=== PATIENT | male | born 1930 | race Caucasian/White ===

== ENCOUNTER 2019-03-24 15:33 | Inpatient (IN) ==
[2019-03-24] MEDS ORDERED: 0.2 MICRON FILTER SET 1 EA IV ONE (15:45)
[2019-03-24] MEDS ORDERED: SODIUM CHLORIDE 0.9% 1000ML 1,000 ML IV ONE (15:46)
[2019-03-24] MEDS ORDERED: NOREPINEPHRINE BIT INJ 8 MG in DEXTROSE 5% 500 ML IV PRN (15:46)
[2019-03-24] MEDS ORDERED: AMIODARONE / D5W 360 MG/200 ML BAG IV SCH (15:55)
[2019-03-24] MEDS ORDERED: NOREPINEPHRINE (Adult STAT Only) 4 MG in D5W 250 ML IV STA (15:56)
--- NOTE | 2019-03-24 15:58 | XRay Report ---
XR chest 1V portable CLINICAL HISTORY: formerly [facility] COMPARISON STUDY: Chest radiograph July 26, 2018. FINDINGS: Lung volumes are diminished. Mild bibasilar opacities favor atelectasis. There is no pneumo thorax or pleural effusion. Pulmonary vascularity is normal. Cardiac size is within normal limits. IMPRESSION: Low lung volumes with bibasilar opacities suggestive of atelectasis. No acute findings. Electronically signed by: Capo Álvarez M.D. 03/24/2019 3:56 PM
[2019-03-24 16:00] LABS: Basophils # (auto) 0.02 K/uL (0-0.2); Basophils % (auto) 0.2 %; Eosinophils # (auto) 0.02 K/uL (0-0.5); Eosinophils % (auto) 0.2 %; Hematocrit (blood only) 39.1 % (42-52); Hemoglobin 12.7 g/dL (14.0-18.0); Immature Granulocytes # (auto) 0.05 K/uL (0.00-0.02); Immature Granulocytes % (auto) 0.5 %; Lymphocytes # (auto) 1.56 K/uL (1.2-3.4); Lymphocytes % (auto) 14.4 %; Mean Corpuscular Hemoglobin 31.6 pg (25-34); Mean Corpuscular Hgb Conc 32.5 g/dL (32-36); Mean Corpuscular Volume 97.3 fL (80-100); Mean Platelet Volume 12.4 fL (7.4-10.4); Monocytes # (auto) 0.29 K/uL (0.11-0.59); Monocytes % (auto) 2.7 %; Neutrophils # (auto) 8.86 K/uL (1.4-6.5); Platelet Count 151 K/uL (130-400); RDW Coefficient of Variation 13.7 % (11.5-14.5); RDW Standard Deviation 48.7 fL (36.4-46.3); Red Blood Count 4.02 M/uL (4.7-6.1)
[2019-03-24 16:32] LABS: Albumin Globulin Ratio 1.1 (0.9-2); Albumin Level 3.3 gm/dl (3.4-5.0); BUN Creatinine Ratio 21.2 (10-20); Bilirubin,Total 0.5 mg/dl (0.2-1); Calcium 8.9 mg/dl (8.5-10.1); Creatinine Clr Calc Pharmacy 32.9 ml/min; Est GFR (African American) 38.4; Est GFR (Non-African American) 33.1; Globulin 2.9 gm/dl (2.5-4.0); Magnesium 2.4 mg/dl (1.8-2.4); Potassium 3.9 mmol/L (3.5-5.1); Total Protein 6.2 gm/dl (6.4-8.2); Troponin I 0.485 ng/ml (0-0.045)
--- NOTE | 2019-03-24 16:39 | XRay Report ---
XR chest 1V portable CLINICAL HISTORY: cp dyspnea COMPARISON STUDY: 03/24/2019 FINDINGS: Central catheter in superior vena cava. Lungs are clear. Mild stable cardiomegaly. Diaphrag ms are smooth. Several old healed left-sided rib fractures. IMPRESSION: Mild cardiomegaly. No acute process. The above report was generated using voice recognition software. It may contain grammatical, syntax or spelling errors. Electronically signed by: Ranjan Otero M.D. 03/24/2019 4:37 PM
[2019-03-24] MEDS ORDERED: INSULIN PROTOCOL GOAL RANGE ONE (16:40)
[2019-03-24] MEDS ORDERED: MODERATE STRESS LEVEL ONE (16:40)
[2019-03-24] MEDS ORDERED: INSULIN REGULAR 250 UNITS in SODIUM CHLORIDE 0.9% 247.5 ML IV SCH ×2 (16:45→19:00)
[2019-03-24 16:46] LABS: Beta-Hydroxybutyrate 5.74 mg/dl (0.2-2.81)
[2019-03-24] MEDS ORDERED: NovoLIN-R BOLUS FROM BAG IV ONE (17:00)
[2019-03-24] MEDS ORDERED: HEPARIN SODIUM/DEXTROSE 25,000 UNITS/500 ML BAG IV SCH (17:15)
[2019-03-24] MEDS ORDERED: NiCARDipine HCL INJ 2.5 MG/ML 10 ML AMP ONE (17:21)
[2019-03-24] MEDS ORDERED: HEPARIN (PORCINE) 1000 UNIT/ML 10 ML (CATH LAB USE ONLY) ONE ×2 (17:21→18:20)
[2019-03-24] MEDS ORDERED: MIDAZOLAM HCL 1 MG/ML 2ML VIAL ONE (17:22)
[2019-03-24] MEDS ORDERED: fentaNYL citrate 100 MCG/2 ML VIAL ONE (17:22)
[2019-03-24] MEDS ORDERED: NITROGLYCERIN/D5W 100MCG/ML 20ML SYR ONE (17:23)
--- NOTE | 2019-03-24 17:23 | Pre Anesthesia Assessment ---
Date of Service March 24, 2019 Pre Sedation Assessment Vital Signs Temp Pulse Pulse Resp BP BP Pulse Ox 03/24/19 17:15 74 16 111/52 L 99 03/24/19 17:09 75 16 110/77 100 03/24/19 17:03 77 16 101/44 L 98 03/24/19 16:51 77 18 93/47 L 100 03/24/19 16:45 70 16 106/50 L 100 03/24/19 16:40 77 16 95/55 L 99 03/24/19 16:35 77 16 94/49 L 99 03/24/19 16:29 72 15 91/47 L 95 03/24/19 16:21 73 16 101/59 L 99 03/24/19 16:12 77 18 84/38 L 100 03/24/19 15:57 78 16 82/50 L 96 03/24/19 15:52 96 03/24/19 15:51 85 16 76/40 L 94 03/24/19 15:40 97.9 F 90 16 69/38 L 94 Cardiovascular RRR, no murmur, no edema Respiratory normal respiratory effort, lungs clear to auscultation Pre-Sedation Airway Assessment Smoking Status: Unknown if ever smoked Hx Sleep Apnea: No Hx Difficult Intubation: No Thyromental Distance: > or= 3.5 Finger Breadths Mallampati Class: III Procedure Planning Contraindications for Sedation: none Current Medications Reviewed: Yes Notes The planned sedation has been discussed with the patient. Informed Consent was obtained. I have identified the patient, determined the appropriateness of sedation and have assessed the patient immediately prior to the procedure. All medicine(s) and interventions are by my order.
--- NOTE | 2019-03-24 17:24 | Critical Care Consultation ---
Date of Consultation March 24, 2019 Assessment & Plan (1) Admitted to intensive care unit: Assessment and Plan: -Ventricular tachycardia likely secondary to coronary ischemia versus possible urinary tract infection -Shock, possibly mixed cardiogenic, hypovolemic and component of septic shock as well -Complicated UTI -Mild DKA Neurologic: Avoid mind altering agents Seen and altered mental status was likely due to his VT Pulmonary: Minimal oxygen requirements currently. Chest x-ray with no acute findings. Cardiovascular: Trend troponins. Likely has a troponin leak from possible underlying ischemia. Defer heparin drip to cardiology. He is to go to Floor Manager now. Discussed with Dr. Castro. Currently on amiodarone. Will need to be started on a beta-geovanni once he is out of shock. We will give a liter to fluids for resuscitation. EF looked intact on limited bedside echo. Needs a formal echo. Gastrointestinal: N.p.o. for now. Renal: He does have an SOUTH at present and is at risk for more injury to his kidneys from the contrast load. We will hydrate as noted above. Infectious disease: Start him on ceftriaxone for possible UTI. Hematologic: No issues currently Endocrine: DKA as noted above. Underlying cause may be due to coronary ischemia versus infectious etiology or combination of both. F/E/N: Lines and tubes: Left IJ placed VTE prophylaxis: Defer until definitive management by cardiology determined Family at bedside: Family updated bedside Disposition: Admit to the ICU I have personally spent 65 minutes of critical care time in the direct management of this patient. This is a life/limb threatening event. This includes time spent evaluating patient, direct bedside care, chart review, placing orders, interpretation of diagnostic studies, discussion with consultants, patient, and family members, as well as other required patient management a ctivities. This time is exclusive of all separately billable procedures, and teaching time and separate from and in addition to any other critical care service time. Thank you for allowing us to participate in the care of this patient. (2) Ventricular tachycardia: (3) Elevated troponin: (4) Shock circulatory: (5) DKA (diabetic ketoacidoses): (6) SOUTH (acute kidney injury): (7) Transaminitis: (8) Complicated UTI (urinary tract infection): History of Present Illness Reason for Consultation: Ventricular tachycardia status post shock and hypotension requiring Levophed Requesting Physician: Emergency room physician History of Present Illness The history was reviewed from electronic medical record and by interviewing the patient. Patient's and daughter was at bedside. 88-year-old male with past medical history of hypertension, diabetes mellitus and pancreatic lesion who presented to the emergency department due to falling to the ground in his bathroom this afternoon. Patient's states that the patient was feeling nauseous and unwell in the morning around 1030. He had some chest pain and discomfort then. He was walking around during that time. This improved a little bit and then in the afternoon around 1:00 he walked to the bathroom and fell. It sounds like he lost consciousness during this episode. The found him and noted that he was not making much sense when speaking. They called EMS and brought him to the emergency department. On route to the emergency department, he was found to be in ventricular tachycardia and was shocked. In the emergency department he was hypotensive and a left IJ was placed. He is currently on 0.05 of norepinephrine. EKG shows dynamic changes in the left lateral leads with deep ST depressions. I performed a limited bedside echo which demonstrated a relatively preserved ejection fraction. Dr. Castro, cardiac interventionalists, also looked at his heart using echo and found similar findings. The plan is to go ahead and proceed with a left heart catheterization. Patient denies any complaint currently. He did state that he had some URI type symptoms last week. He denies any nausea currently, vomiting, chest pain, night sweats or weight loss. Allergies Allergy/AdvReac Type Severity Reaction Status Date / Time No Known Allergies Allergy Verified 03/09/19 14:12 Home Medications Home Medications Medication Instructions Recorded Confirmed Type aspirin [Aspir-Low] 81 mg PO DAILY 07/26/18 03/24/19 History cholecalciferol (vitamin D3) 2,000 unit PO QPM 07/26/18 03/24/19 History [Vitamin D3] glipizide 5 mg PO BID 07/26/18 03/24/19 History lisinopril-hydrochlorothiazide 1 tab PO QAM 07/26/18 03/24/19 History multivitamin 1 tab PO QAM 07/26/18 03/24/19 History naproxen 500 mg PO BID PRN 07/26/18 03/24/19 History albuterol sulfate 2 inh INHALATION QID PRN 03/09/19 03/24/19 History methocarbamol 500 mg PO HS 03/24/19 03/24/19 History ondansetron HCl 4 mg PO Q6 PRN 03/24/19 03/24/19 History Patient History Medical History HTN (hypertension) (Chronic) DMII (diabetes mellitus, type 2) (Chronic) Pancreatic mass (Chronic) BEING MONITORED Hearing deficit Impaired lung function "80% LUNG FUNCTION">REASON FOR INHALER PER PATIENT Osteoarthritis Surgical History H/O metal removed from eye History of cholecystectomy History of colonoscopy History of tonsillectomy and adenoidectomy History of tooth extraction Family History Grandfather (Maternal) Family history of diabetes mellitus Social History Preferred Language: Indonesian Communication Ability: Effective Gate Technician Required: No Beliefs That Will Affect Care: None marital status: Current Living Situation: Spouse current occupational status: retired Feels Safe at Home: Yes Smoking Status: Unknown if ever smoked Hx Alcohol Use: Yes Alcohol type: hard liquor Hx Substance Use: No Review of Systems Review of Systems: All systems reviewed & are unremarkable except as noted in HPI & below Physical Exam Constitutional: WD/WN, vitals as above + frail appearing Eyes: PERRL, conjunctivae normal, anicteric sclerae normal visual garsia by confrontation ENMT: external ear and nose normal, oropharynx normal Ears: + hearing impairment Neck: trachea midline, no thyromegaly normal visual inspection Respiratory: normal respiratory effort, lungs clear to auscultation normal respiratory effort; no respiratory distress Cardiovascular: RRR, no murmur, no edema Heart Sounds: no murmur Extremities: no edema Gastrointestinal (Abdomen): normal bowel sounds, soft, nontender, no hepatosplenomegaly Inspection/Auscultation: abdomen normal to inspection; abdomen not distended Musculoskeletal: no cyanosis or clubbing, extremities motor strength 5/5 Head/Neck/Chest: normocephalic Skin: no rashes, warm and dry normal turgor Neurologic: PERRL, EOMI, accommodation nl, no face palsy, no dysarthria Psychiatric: A+Ox3, euthymic affect Eye Contact: good eye contact Lymphatic: no cervical or axillary lymphadenopathy Results & Data Vital Signs (Past 12 Hours) Vital Signs Temp Pulse Pulse Resp BP BP Pulse Ox 03/24/19 17:15 74 16 111/52 L 99 03/24/19 17:09 75 16 110/77 100 03/24/19 17:03 77 16 101/44 L 98 03/24/19 16:51 77 18 93/47 L 100 03/24/19 16:45 70 16 106/50 L 100 03/24/19 16:40 77 16 95/55 L 99 03/24/19 16:35 77 16 94/49 L 99 03/24/19 16:29 72 15 91/47 L 95 03/24/19 16:21 73 16 101/59 L 99 03/24/19 16:12 77 18 84/38 L 100 03/24/19 15:57 78 16 82/50 L 96 03/24/19 15:52 96 03/24/19 15:51 85 16 76/40 L 94 03/24/19 15:40 97.9 F 90 16 69/38 L 94 Chest x-ray and EKG reviewed. EKG reviewed and demonstrates dynamic ST segment changes. Chest x-ray with a left IJ in place and no evidence of an infiltrate. PG Care Time/CCT Total # of Minutes Spent Total Time Spent: 65 Total Time Spent with Patient: Total time spent is greater than 50% in coordination of care (as documented) at patient's floor/unit and/or counseling patient: 65 min Critical Care Time: Yes Total Critical Care Time: 65
[2019-03-24] MEDS ORDERED: PHARMACY GLYCEMIC MGMT CONSULT PRN (17:34)
[2019-03-24] MEDS ORDERED: DKA GOAL RANGE 150-250 mg/dl ONE (17:34)
--- NOTE | 2019-03-24 18:02 | History & Physical Report ---
Date of Service March 24, 2019 Assessment & Plan (1) Ventricular tachycardia: -admit to ICU -patient presenting from home with episodes of chest pressure, diaphoresis, nausea, and shortness of breath; en route to the ED, patient went into v-tach and was shocked -placed on amio in the ED; also started on norepi for BP support -EKG shows ST depressions in leads V2/V3 -going to lab instructor now -further recommendations/management post cath -resting echo (2) Hypotension: -? due to cardiogenic shock -was placed on norepi in ED -re-evaluate after cath -r/o sepsis (3) DKA (diabetic ketoacidoses): (4) DMII (diabetes mellitus, type 2): -labs suggest DKA with low HCO3, elevated gap, glucose 322 -insulin drip; management as per ICU (5) SOUTH (acute kidney injury): -IVF, follow renal functions -hold ACEi/HCTZ (6) DVT prophylaxis: -TEDs/SCDs for now History of Present Illness Chief Complaint: Weak, Nauseous, Chest Pressure, Shortness of Breath Primary Care Provider: Dalton Keller MD 88 year old male who presents to the ED via EMS. Starting this morning, patient was having episodes of diaphoresis, nausea, chest pressure, and shortness of breath. He collapsed in the bathroom earlier this afternoon. Patient denies loosing consciousness. reports patient was not making much sense. EMS was called. En route to the ED, patient went into V-tach and was shocked. Patient reports he otherwise has been feeling well recently. No other recent illnesses, fever, and chills. Denies other episodes of chest pain and shortness of breath. No abdominal pain, vomiting, or diarrhea. Denies urinary symptoms. Upon arrival to the ED, patient is awake and alert. He was placed on an amio drip. He was somewhat hypotensive and was also placed on a norepi drip. EKG shows ST depression in leads V2/V3. Labs show SOUTH and mild DKA. Dr. Castro evaluated the patient in the ED and patient will be going directly to the lab instructor for further management. Allergies Allergy/AdvReac Type Severity Reaction Status Date / Time No Known Allergies Allergy Verified 03/09/19 14:12 Home Medications Home Medications Medication Instructions Recorded Confirmed Type aspirin [Aspir-Low] 81 mg PO DAILY 07/26/18 03/24/19 History cholecalciferol (vitamin D3) 2,000 unit PO QPM 07/26/18 03/24/19 History [Vitamin D3] glipizide 5 mg PO BID 07/26/18 03/24/19 History lisinopril-hydrochlorothiazide 1 tab PO QAM 07/26/18 03/24/19 History multivitamin 1 tab PO QAM 07/26/18 03/24/19 History naproxen 500 mg PO BID PRN 07/26/18 03/24/19 History albuterol sulfate 2 inh INHALATION QID PRN 03/09/19 03/24/19 History methocarbamol 500 mg PO HS PRN 03/24/19 03/24/19 History ondansetron HCl 4 mg PO Q6 PRN 03/24/19 03/24/19 History Past Med/Surg History Medical History Osteoarthritis (Chronic) Hearing deficit (Chronic) HTN (hypertension) (Chronic) DMII (diabetes mellitus, type 2) (Chronic) Pancreatic mass (Chronic) BEING MONITORED Surgical History History of cholecystectomy (Chronic) Family History Grandfather (Maternal) Family history of diabetes mellitus Social History Preferred Language: Georgian Communication Ability: Effective Veterinary Anatomist Required: No Beliefs That Will Affect Care: None marital status: Current Living Situation: Spouse current occupational status: retired Feels Safe at Home: Yes Smoking Status: Former smoker Tobacco Type: cigarettes ; Second Hand Exposure: Yes ("A LITTLE BIT OF EXPOSURE NOW") ; Hx Alcohol Use: Yes Alcohol type: hard liquor Hx Substance Use: No Review of Systems Review of Systems: ROS per HPI, all other systems reviewed and negative Physical Exam Physical Exam: Please refer to Dr. Russell's addendum for physical exam Results & Data Vital Signs (Past 12 Hours) Vital Signs Temp Pulse Pulse Resp BP BP Pulse Ox 03/24/19 17:15 74 16 111/52 L 99 03/24/19 17:09 75 16 110/77 100 03/24/19 17:03 77 16 101/44 L 98 03/24/19 16:51 77 18 93/47 L 100 03/24/19 16:45 70 16 106/50 L 100 03/24/19 16:40 77 16 95/55 L 99 03/24/19 16:35 77 16 94/49 L 99 03/24/19 16:29 72 15 91/47 L 95 03/24/19 16:21 73 16 101/59 L 99 03/24/19 16:12 77 18 84/38 L 100 03/24/19 15:57 78 16 82/50 L 96 03/24/19 15:52 96 03/24/19 15:51 85 16 76/40 L 94 03/24/19 15:40 36.6 C 90 16 69/38 L 94 Laboratory Results Short CBC 03/24/19 Range/Units 15:50 WBC 10.80 (4.8-10.8) K/uL Hgb 12.7 L (14.0-18.0) g/dL Hct 39.1 L (42-52) % Plt Count 151 (130-400) K/uL BMP 03/24/19 15:50 Sodium 142 Potassium 3.9 Chloride 107 Carbon Dioxide 16 L BUN 38 H Creatinine 1.81 H Glucose 322 H* Calcium 8.9 Cardiac Enzymes 03/24/19 Range/Units 15:50 Troponin I 0.485 H* (0-0.045) ng/ml Liver Function 03/24/19 Range/Units 15:50 Total Bilirubin 0.5 (0.2-1) mg/dl AST 54 H (15-37) U/L ALT 40 (12-78) U/L Alkaline Phosphatase 54 (45-117) U/L Albumin 3.3 L (3.4-5.0) gm/dl Diagnostic Findings CXR IMPRESSION: Low lung volumes with bibasilar opacities suggestive of atelectasis. No acute findings Code Status & VTE Plan Code Status Patient is a full code as per my discussion with him. VTE Prophylaxis Plan VTE Prophylaxis will be ordered: Yes Supervising Physician Co-Signing Physician Notes Patient is an 88-year-old male with history of diabetes, hypertension, former tobacco use and other problems presents with history of nausea, dizziness, diaphoresis, retrosternal chest pressure, dyspnea on exertion which started at around 10:30 a.m. this morning. Patient symptoms transiently improved with inhaler use. Patient later collapsed in the bathroom creatinine. No loss of consciousness as per patient, family. En route to the hospital patient was noted to have ventricular tachycardia and was shocked. While in ED patient has minimal chest pressure but denies any shortness of breath, dizziness, nausea. Patient was evaluated by cardiology and was suggested to have an emergent cardiac cath to rule out CAD. Labs suggestive of acute kidney injury, mild DKA, QTC prolonged at 497. Mild troponin elevation likely secondary to NSTEMI, cardiac shock. EKG suggestive of accelerated rhythm, PVCs and nonspecific ST-T wave changes. Currently CT head, neck is pending. On exam patient is moderately built and nourished, no apparent distress, normocephalic atraumatic,+ hearing aid, lungs-normal breath sounds, bilateral wheezing, S1-S2, no murmur, abdomen soft nontender, bowel sounds are present, grossly no focal neurological deficits, no pedal edema. Patient is admitted for management of NSTEMI, ventricular tachycardia, mild DKA, SOUTH. Patient is being planned to undergo cardiac catheterization and monitored in ICU post-cath for further management. We will plan to correct DKA with insulin therapy, IV fluids. Monitor renal function closely given contrast during catheterization as well. Further management based on cath results. Cardiology, critical care will be consulted. I personally reviewed the record. Patient is interviewed and examined at bedside. Patient's care is coordinated with Adrienne Resendiz FISH SEINER. Please refer to the documentation above for details of patient's presentation and for discussion of other issues.
[2019-03-24] MEDS ORDERED: CLOPIDOGREL BISULFATE 300 MG TAB ONE (18:28)
--- NOTE | 2019-03-24 18:39 | Pre Anesthesia Assessment ---
Date of Service March 24, 2019 Pre Sedation Assessment Vital Signs Temp Pulse Pulse Resp BP BP Pulse Ox 03/24/19 17:15 74 16 111/52 L 99 03/24/19 17:09 75 16 110/77 100 03/24/19 17:03 77 16 101/44 L 98 03/24/19 16:51 77 18 93/47 L 100 03/24/19 16:45 70 16 106/50 L 100 03/24/19 16:40 77 16 95/55 L 99 03/24/19 16:35 77 16 94/49 L 99 03/24/19 16:29 72 15 91/47 L 95 03/24/19 16:21 73 16 101/59 L 99 03/24/19 16:12 77 18 84/38 L 100 03/24/19 15:57 78 16 82/50 L 96 03/24/19 15:52 96 03/24/19 15:51 85 16 76/40 L 94 03/24/19 15:40 97.9 F 90 16 69/38 L 94 Cardiovascular RRR, no murmur, no edema Respiratory normal respiratory effort, lungs clear to auscultation Pre-Sedation Airway Assessment Smoking Status: Former smoker Hx Sleep Apnea: No Hx Difficult Intubation: No Short, Thick Neck: No Thyromental Distance: > or= 3.5 Finger Breadths Mallampati Class: III Procedure Planning Contraindications for Sedation: none Current Medications Reviewed: Yes Notes The planned sedation has been discussed with the patient. Informed Consent was obtained. I have identified the patient, determined the appropriateness of sedation and have assessed the patient immediately prior to the procedure. All medicine(s) and interventions are by my order.
--- NOTE | 2019-03-24 18:40 | Post Anesthesia Assessment ---
Date of Service March 24, 2019 Post Sedation Assessment Vital Signs Temp Pulse Pulse Resp BP BP Pulse Ox 03/24/19 17:15 74 16 111/52 L 99 03/24/19 17:09 75 16 110/77 100 03/24/19 17:03 77 16 101/44 L 98 03/24/19 16:51 77 18 93/47 L 100 03/24/19 16:45 70 16 106/50 L 100 03/24/19 16:40 77 16 95/55 L 99 03/24/19 16:35 77 16 94/49 L 99 03/24/19 16:29 72 15 91/47 L 95 03/24/19 16:21 73 16 101/59 L 99 03/24/19 16:12 77 18 84/38 L 100 03/24/19 15:57 78 16 82/50 L 96 03/24/19 15:52 96 03/24/19 15:51 85 16 76/40 L 94 03/24/19 15:40 97.9 F 90 16 69/38 L 94 Recovery Score Activity: Moves 4 extremities Respiration: Deep Breath/Cough Circulation: +/-20% PreAnes Value Consciousness: Fully Awake Oxygen Saturation: O2 needed for >90% Discharge Sedation Level of Care: Fast Track Phase II Post Sedation Plan On clinical assessment, the patient appears to have tolerated the sedation wit hout complications. Patient is recovering as anticipated. Patient will continue to be monitored by nursing and may be discharged when sedation discharge criteria are met per below protocol. Upon Completions of procedure and additional 15 minutes continue every 5 minute vital signs and the P.A.R. score; then discharge to a Phase I or Fast Track to Phase II per the following guidelines: * Discharge Patient to appropriate Phase II area if PAR is 8 or greater or return to pre- procedure baseline. The post - procedure orders will be as directed. * If PAR score is less than 8 or not return to pre-procedure baseline then patient will follow Phase I monitoring till PAR is reached for Phase II. The Phase I may be done in procedure room or may call to secure a Phase I area. * If naloxone or flumazenil are used for reversal, hold in Phase I for continued monitoring from when last reversal dose was given for a minimum of 60 minutes or longer pending the nurse and/or physician discretion of patient condition before discharge to Phase II. Please call the Sedation Physician to re-evaluate and complete post-note for discharge to Phase II area. Do NOT discharge from procedure sedation or Phase 1 until post- sedation evaluation note is complete by procedure /sedation MD Sedation Discharge Instructions to be given to the patient at discharge to home.
--- NOTE | 2019-03-24 18:40 | Emergency Department Note ---
Entered by Luis Felipe Jackson acting as a scribe for Tomi Lara DO History of Present Illness General Chief complaint: Cardiac Assessment Stated complaint: SYNCOPE, SEMI RESPONSIVE, HYPOTENSION Source: EMS History of Present Illness Provider complaint: Syncope Onset (ago): hour(s) (Just prior to arrival) Location: head Pain Consistency: + other (Episodic) Relieved By: + none Exacerbated By: + none Associated symptoms: no chest pain and no shortness of breath The patient is an 88 year old male w/ PMHx of DVT prophylaxis, SOUTH, DMII, HTN, and pancreatic mass who presents to the ED after having a syncopal episode just prior to arrival. Per EMS the patient syncopized in the bathroom and was found by family who then called 911. Upon arrival of EMS, the patient was mumbling and semi-responsive. En route the patient went into V-tach at 240 so he was given 6 of Adenosine however it did not work. She was then given 2.5 of Versed and shocked at 100J. The patient also received 150 of Amio as he was arriving in the ED. The patient is somewhat responsive and denies any headache or neck pain. Per EMS, the patient's family did not believe he hit his head. The patient denies any chest pain or shortness of breath currently or before the episode. HPI is limited secondary to patient's cognitive state. Per the patient's , the patient started not feeling well about 3 hours befo re the incident. She states he was diaphoretic and dizzy at this time. Per the , the syncopal episode occurred when he was walking to the bathroom. Home Medications Home Medications Medication Instructions Recorded Confirmed Type aspirin [Aspir-Low] 81 mg PO DAILY 07/26/18 03/24/19 History cholecalciferol (vitamin D3) 2,000 unit PO QPM 07/26/18 03/24/19 History [Vitamin D3] glipizide 5 mg PO BID 07/26/18 03/24/19 History lisinopril-hydrochlorothiazide 1 tab PO QAM 07/26/18 03/24/19 History multivitamin 1 tab PO QAM 07/26/18 03/24/19 History naproxen 500 mg PO BID PRN 07/26/18 03/24/19 History albuterol sulfate 2 inh INHALATION QID PRN 03/09/19 03/24/19 History methocarbamol 500 mg PO HS PRN 03/24/19 03/24/19 History ondansetron HCl 4 mg PO Q6 PRN 03/24/19 03/24/19 History Allergies Allergy/AdvReac Type Severity Reaction Status Date / Time No Known Allergies Allergy Verified 03/09/19 14:12 Past Med/Surg History Medical History Osteoarthritis (Chronic) Hearing deficit (Chronic) HTN (hypertension) (Chronic) DMII (diabetes mellitus, type 2) (Chronic) Pancreatic mass (Chronic) BEING MONITORED Surgical History History of cholecystectomy (Chronic) Family History Grandfather (Maternal) Family history of diabetes mellitus Social History Preferred Language: Tunisian Communication Ability: Effective Operating System Programmer Required: No Beliefs That Will Affect Care: None marital status: Current Living Situation: Spouse current occupational status: retired Feels Safe at Home: Yes Smoking Status: Former smoker Tobacco Type: cigarettes ; Second Hand Exposure: Yes ("A LITTLE BIT OF EXPOSURE NOW") ; Hx Alcohol Use: Yes Alcohol type: hard liquor Hx Substance Use: No Review of Systems See HPI for pertinent positives & negatives. Other (Limited secondary to patient's cognitive state) Physical Exam Vital Signs Vital Signs - 24 hr 03/24/19 15:40 03/24/19 15:51 03/24/19 15:52 Temperature 36.6 C Temperature Source Oral Sepsis Recent Fever Within 48 Hours No Sepsis New/Unexplained Change in Mental Status No Sepsis Action Taken by Nursing No Action Required Pulse Rate 90 Pulse Rate [Finger] 85 Respiratory Rate 16 16 Respiratory Effort / Characteristics Non-Labored Respiratory Depth Normal Respiratory Pattern Blood Pressure 69/38 L Blood Pressure [Left Arm] 76/40 L Blood Pressure Mean 48 Blood Pressure Mean [Left Arm] 52 Pulse Oximetry 94 94 96 Oxygen Delivery Method Room Air Nasal Cannula Oxygen Flow Rate 2 03/24/19 15:57 03/24/19 16:12 03/24/19 16:21 Temperature Temperature Source Sepsis Recent Fever Within 48 Hours Sepsis New/Unexplained Change in Mental Status Sepsis Action Taken by Nursing Pulse Rate Pulse Rate [Finger] 78 77 73 Respiratory Rate 16 18 16 Respiratory Effort / Characteristics Non-Labored Non-Labored Non-Labored Respiratory Depth Normal Normal Normal Respiratory Pattern Blood Pressure Blood Pressure [Left Arm] 82/50 L 84/38 L 101/59 L Blood Pressure Mean Blood Pressure Mean [Left Arm] 60 53 73 Pulse Oximetry 96 100 99 Oxygen Delivery Method Nasal Cannula Nasal Cannula Nasal Cannula Oxygen Flow Rate 2 2 2 03/24/19 16:29 03/24/19 16:35 03/24/19 16:40 Temperature Temperature Source Sepsis Recent Fever Within 48 Hours Sepsis New/Unexplained Change in Mental Status Sepsis Action Taken by Nursing Pulse Rate Pulse Rate [Finger] 72 77 77 Respiratory Rate 15 16 16 Respiratory Effort / Characteristics Non-Labored Non-Labored Non-Labored Respiratory Depth Normal Normal Normal Respiratory Pattern Blood Pressure Blood Pressure [Left Arm] 91/47 L 94/49 L 95/55 L Blood Pressure Mean Blood Pressure Mean [Left Arm] 61 64 68 Pulse Oximetry 95 99 99 Oxygen Delivery Method Nasal Cannula Nasal Cannula Oxygen Flow Rate 2 2 03/24/19 16:45 03/24/19 16:51 03/24/19 17:03 Temperature Temperature Source Sepsis Recent Fever Within 48 Hours Sepsis New/Unexplained Change in Mental Status Sepsis Action Taken by Nursing Pulse Rate Pulse Rate [Finger] 70 77 77 Respiratory Rate 16 18 16 Respiratory Effort / Characteristics Non-Labored Non-Labored Non-Labored Respiratory Depth Normal Normal Normal Respiratory Pattern Regular Regular Blood Pressure Blood Pressure [Left Arm] 106/50 L 93/47 L 101/44 L Blood Pressure Mean Blood Pressure Mean [Left Arm] 68 62 63 Pulse Oximetry 100 100 98 Oxygen Delivery Method Nasal Cannula Nasal Cannula Nasal Cannula Oxygen Flow Rate 2 2 2 03/24/19 17:09 03/24/19 17:15 Temperature Temperature Source Sepsis Recent Fever Within 48 Hours Sepsis New/Unexplained Change in Mental Status Sepsis Action Taken by Nursing Pulse Rate Pulse Rate [Finger] 75 74 Respiratory Rate 16 16 Respiratory Effort / Characteristics Non-Labored Non-Labored Respiratory Depth Normal Normal Respiratory Pattern Blood Pressure Blood Pressure [Left Arm] 110/77 111/52 L Blood Pressure Mean Blood Pressure Mean [Left Arm] 88 71 Pulse Oximetry 100 99 Oxygen Delivery Method Nasal Cannula Nasal Cannula Oxygen Flow Rate 2 2 GENERAL: Ill-appearing lying in bed on NC, awakens to painful stimuli, follows command but falls asleep quickly. EYE EXAM: normal conjunctiva. PERRL and EOM's grossly intact. Pupils are equal at 2mm. OROPHARYNX: no exudate, no erythema, lips, buccal mucosa, and tongue normal and mucous membranes are moist NECK: supple, no nuchal rigidity, no adenopathy, non-tender LUNGS: Clear to auscultation. Normal chest wall mechanics HEART: no murmurs, S1 normal and S2 normal ABDOMEN: abdomen soft, non-tender, normo-active bowel, sounds, no masses, no rebound or guarding. BACK: Back is symmetrical on inspection and there is no deformity, no midline tenderness, no CVA tenderness. SKIN: no rashes and no bruising UPPER EXTREMITIES: upper extremities are grossly normal. LOWER EXTREMITIES: No pitting edema. NEURO EXAM: Groggy but oriented, follow commands, no focal deficits. GENERAL: Laying on stretcher, ill-appearing on 2 L nasal cannula EYE EXAM: normal conjunctiva. Pupils 2 mm and equal round and reactive. OROPHARYNX: no exudate, no erythema, lips, buccal mucosa, and tongue normal and mucous membranes are dry. NECK: supple, no nuchal rigidity, no adenopathy, non-tender LUNGS: Diminished at bilateral bases. Normal chest wall mechanics HEART: no murmurs, S1 normal and S2 normal ABDOMEN: abdomen soft, non-tender, normo-active bowel sounds, no masses, no rebound or guarding. SKIN: no rashes and no bruising UPPER EXTREMITIES: upper extremities are grossly normal. LOWER EXTREMITIES: No pitting edema. NEURO EXAM: Awake alert oriented to person and place following commands no focal deficit but groggy. Procedures Free Text Procedures Ultrasound the left IJ was used to visualize placement of the left IJ. Central Line Placement Left IJ: Time Out Performed: Yes Patient Placed on Monitor/Pulse Ox: Yes MD Prep: mask, gown and gloves Central Line Prep: Chlorhexidine scrub and sterile drapes applied Local Anesthetic: lidocaine 1% Amount of anesthesia used (mL): 4 Ultrasound Used for Placement: Yes Central Line Lumen Inserted: single Post Procedure: sutured in place, good blood return, all ports aspirated, flushed, capped and sterile dressing applied Post Procedure X-Ray: tip of catheter in good position and no pneumothorax seen Patient Tolerated Procedure: well Complications: none Course ED COURSE: Vital signs were reviewed and showed hypotension. The patients medical record was reviewed The above diagnostic studies were performed and reviewed. ED treatments and interventions as stated above. Prior to arrival EMS sent two EKGs, the first read: V-tach rate of 240, normal axis The second read: ST rate of 103, ST depressions inferiorly and anteriorly, septal Q waves. 1533: The patient was evaluated in room B01. A complete history and physical examination was performed. 1544: The patient's blood pressure was dropping so I placed a central line. See procedure note for more information. 1640: I spoke to Dr. Mira Carrasquillo [facility] Tin Flopper about the patient's case so he is aware. The patient will be going to the ICU. 1648: I spoke to Dr. Matthew King about the patient's case. He is going to come evaluate the patient. 1654: I spoke to Adrienne PACHECO under Dr. Drew Ayoub about the patient's case. They will be accepting the patient for further evaluation. 1703: The pourer bull ladle, who is now at bedside, would like the patient started on IV Heparin. 1721: I spoke to Dr. Castro after he evaluated the patient and he is going to bring him directly to the filling station laborer before going to the ICU. Based on the patients age, coexisting illnesses, exam and lab findings the decision to treat as an inpatient was made. The patient remained stable while under my care. The patient will be evaluated for further management. Consultations Consultation #1: I spoke to Dr. Mira Carrasquillo [facility] Tin Flopper about the patient's case so he is aware. The patient will be going to the ICU. Time: 16:40 Consultation #2: I spoke to Dr. Matthew King about the patient's case. He is going to come evaluate the patient. Time: 16:48 Consultation #3: I spoke to Adrienne PACHECO under Dr. Drew Ayoub about the patient's case. They will be accepting the patient for further evaluation. Time: 16:54 Additional Consultation(s): 1721: I spoke to Dr. Castro after he evaluated the patient and he is going to bring him directly to the filling station laborer before going to the ICU. Administered Medications Amiodarone HCl/Dextrose (Nexterone / D5w) 360 mg in 200 mls @ 33.3 mls/hr IV .Q6H1M LAUREN Stop: 03/24/19 21:55 Last Admin: 03/24/19 16:02 Dose: 33.3 mls/hr Documented by: [id number] Cosigned by: [id number] Discontinued Medications Sodium Chloride (Nss 1000ml) 1,000 mls @ 999 mls/hr IV .Q1H1M ONE Stop: 03/24/19 16:46 Last Admin: 03/24/19 15:54 Dose: 999 mls/hr Documented by: [id number] Norepinephrine Bitartrate 4 mg (/ Dextrose) 254 mls @ 0 mls/hr IV .Q0M STA; Protocol Stop: 03/24/19 15:57 Last Admin: 03/24/19 16:06 Dose: 0.05 mcg/kg/min, 17.6 mls/hr Documented by: [id number] Cosigned by: [id number] Medical Decision Making Differential Diagnosis Differential diagnoses includes but is not limited to acute coronary syndrome, myocardial infarction, pericarditis, pulmonary embolus, aortic dissection, pneumonia, pneumothorax, musculoskeletal, shingles, esophageal. Medical Records Attestation: I reviewed the patient's medical records. Home Medications Current Medication List: was personally reviewed by me Laboratory Data Attestation: I reviewed the patient's lab results. Result diagrams: 03/24/19 15:50 03/24/19 15:50 Lab Results 03/24/19 03/24/19 Range/Units 15:50 15:50 WBC 10.80 (4.8-10.8) K/uL RBC 4.02 L (4.7-6.1) M/uL Hgb 12.7 L (14.0-18.0) g/dL Hct 39.1 L (42-52) % MCV 97.3 (80-100) fL MCH 31.6 (25-34) pg MCHC 32.5 (32-36) g/dL RDW Std Deviation 48.7 H (36.4-46.3) fL RDW Coeff of Willie 13.7 (11.5-14.5) % Plt Count 151 (130-400) K/uL MPV 12.4 H (7.4-10.4) fL Immature Gran % (Auto) 0.5 % Neut % (Auto) 82.0 % Lymph % (Auto) 14.4 % Creek % (Auto) 2.7 % Eos % (Auto) 0.2 % Baso % (Auto) 0.2 % Immature Gran # (Auto) 0.05 H (0.00-0.02) K/uL Neut # (Auto) 8.86 H (1.4-6.5) K/uL Lymph # (Auto) 1.56 (1.2-3.4) K/uL Creek # (Auto) 0.29 (0.11-0.59) K/uL Eos # (Auto) 0.02 (0-0.5) K/uL Baso # (Auto) 0.02 (0-0.2) K/uL Sodium 142 (136-145) mmol/L Potassium 3.9 (3.5-5.1) mmol/L Chloride 107 (98-107) mmol/L Carbon Dioxide 16 L (21-32) mmol/L Anion Gap 19.0 H (3-11) BUN 38 H (7-18) mg/dl Creatinine 1.81 H (0.6-1.4) mg/dl Est Cr Clr Drug Dosing 32.9 ml/min Est GFR ( Amer) 38.4 Est GFR (Non-Af Amer) 33.1 BUN/Creatinine Ratio 21.2 H (10-20) Glucose 322 H* (70-99) mg/dl Calcium 8.9 (8.5-10.1) mg/dl Magnesium 2.4 (1.8-2.4) mg/dl Total Bilirubin 0.5 (0.2-1) mg/dl AST 54 H (15-37) U/L ALT 40 (12-78) U/L Alkaline Phosphatase 54 (45-117) U/L Troponin I 0.485 H* (0-0.045) ng/ml Total Protein 6.2 L (6.4-8.2) gm/dl Albumin 3.3 L (3.4-5.0) gm/dl Globulin 2.9 (2.5-4.0) gm/dl Albumin/Globulin Ratio 1.1 (0.9-2) Lipase 116 (73-393) U/L Beta-Hydroxybutyric Acd 5.74 H (0.2-2.81) mg/dl Imaging Data Radiologist's Impression: Radiology results as stated below per my review and the radiologist's interpretation: XR chest 1V portable CLINICAL HISTORY: vtach COMPARISON STUDY: Chest radiograph July 26, 2018. FINDINGS: Lung volumes are diminished. Mild bibasilar opacities favor atelectasis. There is no pneumothorax or pleural effusion. Pulmonary vascularity is normal. Cardiac size is within normal limits. IMPRESSION: Low lung volumes with bibasilar opacities suggestive of atelectasis. No acute findings. Electronically signed by: Capo Álvarez M.D. 03/24/2019 3:56 PM XR chest 1V portable CLINICAL HISTORY: cp dyspnea COMPARISON STUDY: 03/24/2019 FINDINGS: Central catheter in superior vena cava. Lungs are clear. Mild stable cardiomegaly. Diaphragms are smooth. Several old healed left-sided rib fractures. IMPRESSION: Mild cardiomegaly. No acute process. The above report was generated using voice recognition software. It may contain grammatical, syntax or spelling errors. Electronically signed by: Ranjan Otero M.D. 03/24/2019 4:37 PM ECG Data Attestation: I personally reviewed and interpreted this ECG as follows: Indication: syncope Rate (beats per minute): 94 Rhythm: junctional (Accelerated ) Findings: + other (Poor baseline) and + ST depression (Inferior and septal) Comparison ECG Date: from (07/26/18) Change: the following changes noted (ST depressions inferiorly are new, rhythm is new. ) Blood Pressure Blood Pressure Findings: Low blood pressure Blood Pressure Disposition: further management by hospitalist SANAM Narrative Patient is an 88-year-old male that presents following a syncopal episode at home. He was not feeling well for about 3 hours and passed out and was semi- responsive. Upon arrival of EMS they note that he was pulseless and he was placed on the monitor and found to be in V. tach. He was shocked with 200 J and he was given 2 of Versed. Following this he did wake up. He did have a blood pressure that time was brought in. IV was established blood work was obtained when he came into the ER. He was seen in B1. He was given the bolus and drip of amiodarone. CBC with a hemoglobin of 12.7. No significant leukocytosis. BMP with a creatinine of 1.8. CO2 was slightly low at 16 which I favor seconda ry to V. tach and nonperfusion. Glucose was elevated 322. Troponin was detectable at 0.485. Lipase was normal. Systolic blood pressures were in the 70s. EKG with ST depressions in the inferior anterior and lateral. Initial EKG via EMS was reviewed and showed a V. tach. I placed a left IJ under ultrasound guidance. No complications. Following this it was confirmed with an additional chest x-ray. Patient was placed on levo fed drip and systolic blood pressures trended up to the low 100s. Amiodarone was continued. Patient was placed on insulin drip as well. Consulted the ICU as well as the hospitalist and the interventionalist. Tin Flopper recommended heparin drip and bolus. Patient was taken to the Physically Impaired Teacher. Nursing did request if they should perform the CT now were taken to the Physically Impaired Teacher I deferred to the interventionalist and pourer bull ladle. Patient was monitored closely while in the ER. Impression & Plan Ventricular tachycardia, Elevated troponin, SOUTH (acute kidney injury), Acute hypotension Critical Care Time Critical Care Time: Yes Total Critical Care Time: 75 I have personally spent greater than 75 minutes of critical care time in the direct management of this patient. This includes bedside care, interpretation of diagnostic studies, and testing, discussion with consultants, patient, and family members, and other required patient management activities. This 75 minutes is in excess of all separately billable procedures. Discharge Plan Visit Data Chief Complaint: Cardiac Assessment Stated Complaint: SYNCOPE, SEMI RESPONSIVE, HYPOTENSION ED Provider: Tomi Lara Discharge Problem: Ventricular tachycardia, Elevated troponin, SOUTH (acute kidney injury), Acute hypotension Patient Disposition: Being Evaluated by Hospitalist Discharge Instructions Interventions: ED Discharge Assessment Last Done: 03/24/19 17:26 The scribe's documentation has been prepared under my direction and personally reviewed by me in its entirety. I confirm that the note above accurately reflects all work, treatment, procedures, and medical decision making performed by me.
--- NOTE | 2019-03-24 18:45 | Cardiac Catheterization ---
[facility] Data: Carbide Operator Cardiac Status Clinical evaluation leading to the procedure CAD Presenation: Non STEMI Anginal Classification: CCS IV Heart Failure: No Cardiogenic Shock within 24 Hours: No Cardiac Arrest within 24 Hours: Yes Imaging Studies Past 6 Months: No Stress Studies Past 6 Months: No Diagnostic Physicians Name: Robbie Castro MD Status: Urgent Closure Device Percutaneous Entry Location: Radial Closure Device: Radial Band Recommendations: PCI without planned CABG PCI Indication: PCI for high risk Non-VINNY Lesion Segment Name: Distal circumflex Culprit Artery: Yes Stenosis Prior to Rx (%): 95 Chronic Total Occlusion: No IVUS: No FFR: No Pre-Procedure VINICIUS Flow: 2 Previously Treated Lesion: No Lesion Complexity: Non-High/Non-C Lesion Length (mm): 12 Thrombus Present: No Bifurcation Lesion: No Guidewire Across Lesion: Stenosis Post-Procedure (%): 0 Post-Procedure VINICIUS Flow: 3 Devices(s) Deployed: Yes Yes Intraprocedure Events Significant Disection: No Perforation: No Cardiac Cath Procedure Full Procedure Date March 24, 2019 Pre-Procedure Diagnosis Pre-Procedure Diagnosis: Non STEMI AUC Score AUC Score: 8 Post-Procedure Diagnosis Post-Procedure Diagnosis: Severe CAD and Successful PCI Procedure(s) Performed Procedure(s) Performed: Coronary Angiography, Left Heart Cath and Drug Eluting Stent Home Care Chaplain Robbie Castro MD Marine Gear Keeper(s) Rashard Estimated Blood Loss Estimated Blood Loss: 20 Medication(s) Medication(s): Clopidogrel, Fentanyl, Heparin, Lidocaine 1%, Nicardipine, Nitroglycerin and Versed Summary of Findings Indication: High risk NSTEMI, VT arrest Access: 6 Fr right radial artery Catheters: [place], JL 3.5, EBU 3.5 guide Findings: LM -calcified, luminal irregularities LAD -moderate caliber, calcified, 40% mid segment stenosis 50 to 60% latemid stenosis after takeoff of second diagonal, distal luminal irregularities as wraps around apex. Moderate caliber second diagonal without significant disease Circumflex -moderate caliber, heavily calcified, 30% ostial, proximal/mid luminal irregularities, 95% focal distal stenosis. Moderate caliber OM 2 without significant disease per RCA -moderate caliber vessel, dominant, calcified, 30% proximal to mid disease multiple 30 to 40% mid segment lesions, distal luminal irregularities. LVEDP -19 -- PCI -- Antithrombotic therapy: Heparin, clopidogrel Procedure: Left main cannulated with EBU 3.5 guide Network Engineering Advisor 50 wire passed across lesion into distal vessel Distal circumflex lesion predilated with two-point compliant balloon Dilated lesion stented with 2.25 x 15 mm [place] drug-eluting Stent post-dilated with 2.5 noncompliant balloon IC vasodilators administered for spasm Post procedure VINICIUS 3 flow, stent well expanded with minimal residual stenosis and no apparent cardiac complications. Arterial Closure: TR Summary: 1. Severe single vessel coronary artery disease -Focal 95% distal circumflex 2. Borderline elevated intracardiac filling pressure 3. Successful PCI of distal circumflex with single drug-eluting stent (2.25 x 15 mm Mikhail; postdilated with 2.5 NC). Recommendations: To ICU for continued monitoring Trend troponin until peak, check echocardiogram in a.m. Loaded with clopidogrel 600 mg Continue dual-antiplatelet therapy for at least one year Continue statin, and ASCVD risk factor modification Consult cardiac Rehab Hemodynamics Rest Ao:: 130/67 Final Ao: 111/60/80 LV: 113/19 Recommendations Recommendations: PCI without planned CABG Specimens Specimens: None Radiation Exposure (mGy) 1843 Contrast (mls) 115 Fluids (cc crystalloids) Fluids (cc crystalloids): 70 Drains Drains: None Anesthesia Moderate Procedural Complication(s) None Disposition ICU
[2019-03-24] MEDS ORDERED: LACTATED RINGER'S 1,000 ML IV ONE (19:00)
--- NOTE | 2019-03-24 19:02 | Cardiology Consultation ---
Date of Consultation March 24, 2019 Assessment & Plan (1) Ventricular tachycardia: In the setting of reported proceeding chest pain earlier in the day, VT arrest, ST depressions on EKG/elevated troponin and mild hemodynamic instability requiring pressors feel makes sense to rule out high risk coronary artery disease. Discussed cardiac catheterization including risks, benefits, alternatives of procedure with patient and his family and they are willing to proceed. Further recommendations pending findings of coronary angiography. History of Present Illness Attending Physician: Barber Russell MD History of Present Illness 88-year-old man here after VT arrest in route with post ROSC ST changes and troponin elevation. Interventional cardiology consulted regarding need for urgent catheterization. No prior cardiac history. Past medical history remarkable for type 2 diabetes on oral therapy, Chronic renal insufficiency. This afternoon patient reportedly felt generally unwell for about 2 hours. His reported that he did endorse some chest pain, nausea and diaphoresis. Later had a spell while attempting to go to the bathroom and EMS was contacted. During transport went into VT requiring CPR and shocked x1 before ROSC. In the ED chest pain-free hypotensive intermittently requiring fluids and norepinephrine. EKG showed junctional rhythm with anterior ST depressions.. Troponin elevated at 0.485. Allergies Allergy/AdvReac Type Severity Reaction Status Date / Time No Known Allergies Allergy Verified 03/09/19 14:12 Home Medications Home Medications Medication Instructions Recorded Confirmed Type aspirin [Aspir-Low] 81 mg PO DAILY 07/26/18 03/24/19 History cholecalciferol (vitamin D3) 2,000 unit PO QPM 07/26/18 03/24/19 History [Vitamin D3] glipizide 5 mg PO BID 07/26/18 03/24/19 History lisinopril-hydrochlorothiazide 1 tab PO QAM 07/26/18 03/24/19 History multivitamin 1 tab PO QAM 07/26/18 03/24/19 History naproxen 500 mg PO BID PRN 07/26/18 03/24/19 History albuterol sulfate 2 inh INHALATION QID PRN 03/09/19 03/24/19 History methocarbamol 500 mg PO HS PRN 03/24/19 03/24/19 History ondansetron HCl 4 mg PO Q6 PRN 03/24/19 03/24/19 History Patient History Medical History Osteoarthritis (Chronic) Hearing deficit (Chronic) HTN (hypertension) (Chronic) DMII (diabetes mellitus, type 2) (Chronic) Pancreatic mass (Chronic) BEING MONITORED Surgical History History of cholecystectomy (Chronic) Family History Grandfather (Maternal) Family history of diabetes mellitus Social History Preferred Language: Lao Communication Ability: Effective Chaser Tar Required: No Beliefs That Will Affect Care: None marital status: Current Living Situation: Spouse current occupational status: retired Feels Safe at Home: Yes Smoking Status: Former smoker Tobacco Type: cigarettes ; Second Hand Exposure: Yes ("A LITTLE BIT OF EXPOSURE NOW") ; Hx Alcohol Use: Yes Alcohol type: hard liquor Hx Substance Use: No Review of Systems Review of Systems: Not obtained in the setting of emergent situation Physical Exam Physical Exam: General: Comfortable, no acute distress HEENT: Sclerae anicteric Lungs: Clear to auscultation bilaterally Cardiac: Regular rate, no murmur Abdomen: Soft, nontender Extremities: Warm, well perfused, no edema. 2+ radial pulses Skin: No rashes or lesions. Neuro: Nonfocal Psych: Alert orient x3, normal affect and mood Results & Data Vital Signs (Past 12 Hours) Vital Signs Temp Pulse Pulse Resp BP BP Pulse Ox 03/24/19 17:15 74 16 111/52 L 99 03/24/19 17:09 75 16 110/77 100 03/24/19 17:03 77 16 101/44 L 98 03/24/19 16:51 77 18 93/47 L 100 03/24/19 16:45 70 16 106/50 L 100 03/24/19 16:40 77 16 95/55 L 99 03/24/19 16:35 77 16 94/49 L 99 03/24/19 16:29 72 15 91/47 L 95 03/24/19 16:21 73 16 101/59 L 99 03/24/19 16:12 77 18 84/38 L 100 03/24/19 15:57 78 16 82/50 L 96 03/24/19 15:52 96 03/24/19 15:51 85 16 76/40 L 94 03/24/19 15:40 97.9 F 90 16 69/38 L 94 PG Care Time/CCT Total # of Minutes Spent Total Time Spent with Patient: Total time spent is greater than 50% in coordination of care (as documented) at patient's floor/unit and/or counseling patient:
[2019-03-24] MEDS ORDERED: SODIUM CHLORIDE 0.9% 500 ML IV SCH (19:15)
[2019-03-24] MEDS ORDERED: ICU PROTOCOL FOR HYPERGLYCEMIA PRN (19:22)
[2019-03-24 19:35] LABS: BUN Creatinine Ratio 22.6 (10-20); Calcium 8.6 mg/dl (8.5-10.1); Creatinine Clr Calc Pharmacy 34.6 ml/min; Est GFR (African American) 39.2; Est GFR (Non-African American) 33.8; Potassium 3.9 mmol/L (3.5-5.1)
[2019-03-24] MEDS ORDERED: GLUCAGON FOR INJ 1 MG VIAL IM PRN (19:45)
[2019-03-24] MEDS ORDERED: GLUCOSE 40% GEL 15 GM TUBE PO PRN (19:45)
[2019-03-24] MEDS ORDERED: GLUCOSE 10 TABS/TUBE PO PRN (19:45)
[2019-03-24] MEDS ORDERED: CARBOHYDRATES FOR HYPOGLYCEMIA PO PRN (19:45)
[2019-03-24] MEDS ORDERED: DEXTROSE 50% 50 ML SYRINGE IV PRN (19:45)
[2019-03-24] MEDS: cefTRIAXone SODIUM 2,000 MG in DEXTROSE 5% 50 ML IV SCH (19:54)
[2019-03-24] MEDS ORDERED: PENDING 1/2NSS+20mEq KCL IVF SCH (20:00)
[2019-03-24] MEDS ORDERED: LACTATED RINGER'S 1,000 ML IV SCH (20:00)
[2019-03-24 20:23] LABS: Troponin I 2.79 ng/ml (0-0.045)
[2019-03-24] MEDS ORDERED: SODIUM CHLOR 0.45% + 20MEQ KCL 20 MEQ/1,000 ML BAG IV SCH (21:00)
[2019-03-24] MEDS ORDERED: INSULIN ASPART 100 UNITS/ML 3 ML PEN SC SCH ×2 (21:00)
[2019-03-24] MEDS ORDERED: D5W AND 1/2NSS + 20MEQ KCL 20 MEQ/1,000 ML BAG IV SCH (21:15)
[2019-03-24] MEDS: AMIODARONE / D5W 360 MG/200 ML BAG IV SCH (21:58)
[2019-03-24] MEDS: LACTATED RINGER'S 1,000 ML IV SCH (21:59)
[2019-03-24 22:15] LABS: BUN Creatinine Ratio 23.8 (10-20); Calcium 8.6 mg/dl (8.5-10.1); Creatinine Clr Calc Pharmacy 36.2 ml/min; Est GFR (African American) 41.4; Est GFR (Non-African American) 35.7
[2019-03-24 22:44] LABS: Appearance Urine Turbid (Clear); Bacteria Urine Automated 1+ (Negative); Bilirubin Urine Negative (Negative); Blood Urine 1+ (Negative); Color Urine Dark Yellow; Epithelial Cell Urine Auto >30 /lpf (0-5); Glucose Urine UA 1+ (Negative); Ketones Urine Negative (Negative); Leukocyte Esterase Urine Trace (Negative); Nitrite Urine Negative (Negative); Protein Urine 2+ (Negative); RBC Urine Automated 0-4 /hpf (0-4); Specific Gravity Urine > 1.045 (1.000-1.030); Urobilinogen Urine Negative (Negative); WBC Urine Automated >30 /hpf (0-5)
[2019-03-24 22:54] LABS: Cast Urine Automated >30 /lpf (0-5)
--- NOTE | 2019-03-24 22:54 | Pharmacy Report ---
Pharmacy Glycemic Short Note 2 - Date of Service March 24, 2019 Patient ordered Pharmacy Glycemic Management consult by etiologist and begun on DKA insulin infusion protocol upon arrival to ICU from [facility] - Glycemic Short BSG Results (Last 24 hours): 03/24/19 03/24/19 03/24/19 15:50 19:06 19:28 Glucose 322 H* 223 H POC Glucose 232 H 03/24/19 03/24/19 03/24/19 21:12 21:47 21:50 Glucose 124 H POC Glucose 177 H 126 H ASSESSMENT: * Patient started on DKA insulin infusion protocol per etiologist and beginning rate was 0.1 units/kg/hr with starting blood sugar over 300mg/dl * given blood sugar on lower end I chose to not use 0.1 unit/kg bolus dose PLAN FOR INPATIENT GLYCEMIC CONTROL: * Instructed RN to reduce rate from starting rate to ~0.035unit/kg/hr or 3units per hour when blood sugar went below 200mg/dl * also reduced goal range to 150-200mg/dl and Dextrose containing fluids were started
[2019-03-24 22:56] LABS: Granular Casts Urine >30 /lpf (0)
[2019-03-25] MEDS ORDERED: INSULIN ASPART 100 UNITS/ML 3 ML PEN SC SCH (00:15)
[2019-03-25] MEDS: INSULIN ASPART 100 UNITS/ML 3 ML PEN SC SCH ×5 (00:45→20:47)
[2019-03-25] MEDS ORDERED: SODIUM CHLOR 0.45% + 20MEQ KCL 20 MEQ/1,000 ML BAG IV SCH (01:00)
[2019-03-25 05:15] LABS: Basophils # (auto) 0.01 K/uL (0-0.2); Basophils % (auto) 0.1 %; Hematocrit (blood only) 36.3 % (42-52); Hemoglobin 12.4 g/dL (14.0-18.0); Immature Granulocytes # (auto) 0.03 K/uL (0.00-0.02); Immature Granulocytes % (auto) 0.2 %; Lymphocytes # (auto) 1.13 K/uL (1.2-3.4); Lymphocytes % (auto) 8.9 %; Mean Corpuscular Hemoglobin 32.3 pg (25-34); Mean Corpuscular Hgb Conc 34.2 g/dL (32-36); Mean Corpuscular Volume 94.5 fL (80-100); Mean Platelet Volume 11.9 fL (7.4-10.4); Monocytes # (auto) 1.08 K/uL (0.11-0.59); Monocytes % (auto) 8.5 %; Neutrophils # (auto) 10.46 K/uL (1.4-6.5); Neutrophils % (auto) 82.3 %; Platelet Count 168 K/uL (130-400); RDW Coefficient of Variation 13.7 % (11.5-14.5); RDW Standard Deviation 46.9 fL (36.4-46.3); Red Blood Count 3.84 M/uL (4.7-6.1); White Blood Count 12.71 K/uL (4.8-10.8)
[2019-03-25 05:44] LABS: BUN Creatinine Ratio 26.3 (10-20); Calcium 8.4 mg/dl (8.5-10.1); Creatinine Clr Calc Pharmacy 38.5 ml/min; Est GFR (African American) 44.6; Est GFR (Non-African American) 38.4; Magnesium 2.3 mg/dl (1.8-2.4); Potassium 3.7 mmol/L (3.5-5.1)
[2019-03-25 05:47] LABS: Phosphorus 3.3 mg/dl (2.5-4.9); Troponin I 8.95 ng/ml (0-0.045)
[2019-03-25] MEDS ORDERED: PERFLUTREN LIPID MICROSPHERE (DEFINITY) IV ONE (06:48)
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
[2019-03-25] MEDS: LACTATED RINGER'S 1,000 ML IV SCH ×3 (08:32→21:26)
[2019-03-25] MEDS: POTASSIUM CHLORIDE / WTR 10 MEQ/100 ML PLCT IV SCH ×2 (08:32→11:50)
[2019-03-25] MEDS: AMIODARONE / D5W 360 MG/200 ML BAG IV SCH (08:32)
--- NOTE | 2019-03-25 09:31 | Cardiology Consultation ---
Date of Consultation March 25, 2019 Assessment & Plan (1) Ventricular tachycardia: (2) NSTEMI (non-ST elevated myocardial infarction): Patient presented after ventricular tachycardia arrest, received a short course of CPR, and had spontaneous return of circulation after defibrillation x 1. Presenting EKG after the ventricular tachycardia resolved was notable for ST segment depression. Patient underwent emergent cardiac catheterization with PCI, drug-eluting stent to a 95% circumflex occlusion, patient has nonobstructive disease elsewhere. Patient presented with metabolic derangements including concerns of DKA, acute kidney injury, possible urinary tract infection, but based on the patient's description, it does sound as if this could very well been an ischemia driven event as the primary inciting cause. His blood pressure is now stable off of norepinephrine. Creatinine is trending down. Most recent troponin this morning was 8.9, and this will be repeated tomorrow. At this time I recommend the patient remains in the intensive care unit for close monitoring. We will discontinue IV amiodarone and transition him to oral amiodarone. Start metoprolol tartrate 25 mg twice daily, with caution given the patient's long first-degree AV block. Hold off on JOYCE inhibitor or angiotensin receptor geovanni given issues with transient low blood pressure within the last 24 hours, and acute kidney injury. The patient's echocardiogram is technically limited. As noted, this was also observed at the time of his 2017 echocardiogram. The left ventricular ejection fraction however appears to be grossly normal. The right ventricle appears hypokinetic. With speculate that the cause of the ventricular arrhythmia was ischemia, and that with PCI, this should improve. However we will also continue amiodarone. With having had an ischemic culprit for intravascular relation to the base, and normal LVEF, AICD placement for secondary prevention of sudden cardiac is not indicated at this juncture, unless recurrence of the arrhythmia would be observed which time this will be reassessed. I am going to advance the patient's diet. (3) SOUTH (acute kidney injury): Continue gentle hydration. (4) Hypokalemia: Patient received IV potassium replacement. DVT prophylaxis: Start subcutaneous heparin. History of Present Illness Attending Physician: Rufus Jose MD History of Present Illness Yazmin Lawton is an 88 year old male seen in general cardiology consultation per the request of TARA Hernandez of the [facility]ist service for ongoing cardiac care. The patient's primary care provider is Dr. Keller of [facility]. He does not follow with cardiology on a chronic basis. He did however have a resting echocardiogram performed as an outpatient in our office in May 2017. The report describes that the images were technically difficult with LVEF in the range of 55 to 59%. A combined low intensity exercise/pharmacologic nuclear stress test was also performed as an outpatient on 05/14/2017 with noted normal LVEF, and no evidence of inducible ischemia. The patient was seen and examined by the undersigned in ICU room 107. He was awake and conversant. He told me that 2 days ago he felt well. Yesterday, his day of presentation 03/24/2019 he got up and ate breakfast, he states that around 10:00 he let his dogs out, and then he sat down with a sensation of nauseousness and heavy perspiration. This persisted for quite some time, and that apparently he went to the bathroom and reportedly per bystanders had a syncopal episode, the patient does not recall whether or not he passed out or not. His mental status was poor, and his spouse called EMS. In route to the hospital, he had apparently been observed to have ventricular tachycardia, per the emergency room providers note, the rate was in the range of 240 bpm. Unfortunately the rhythm strip of this is not available for my personal review at present. The patient received defibrillation by EMS while in the ambulance, and also received IV amiodarone. His initial EKG on arrival to the emergency department yesterday at 1543 revealed evidence of an accelerated junctional rhythm with ST segment depression in leads V2 and V3. The patient's mental status was appropriate status post spontaneous return of circulation with defibrillation. He was seen in emergent consultation by Dr. 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 Mild to moderate nonobstructive disease was noted elsewhere including a 40% mid LAD stenosis and a 50 to 60% late mid LAD stenosis after the takeoff of a second diagonal. The right coronary artery was a moderate caliber dominant vessel with a 30% proximal to mid stenosis and a 30 to 40% mid segment lesion and distal luminal irregularities. The patient was transferred to the intensive care unit and remained on an amiodarone infusion overnight last night. Shortly after arriving in the intensi ve care unit from the cardiac catheterization laboratory, he did have an episode of wide-complex rhythm with rate of 93 bpm for which the patient was asymptomatic, his blood pressure remained stable, and it terminated spontaneously. Most recent EKG performed this a.m. reveals sinus rhythm at 82 bpm with first- degree AV block, NC interval 280 ms, mild nonspecific repolarization changes, with improvement in the previously noted anterior ST segment depression. The patient had residual nausea last night, without dorinda chest discomfort. Allergies Allergy/AdvReac Type Severity Reaction Status Date / Time No Known Allergies Allergy Verified 03/09/19 14:12 Home Medications Home Medications Medication Instructions Recorded Confirmed Type aspirin [Aspir-Low] 81 mg PO DAILY 07/26/18 03/24/19 History cholecalciferol (vitamin D3) 2,000 unit PO QPM 07/26/18 03/24/19 History [Vitamin D3] glipizide 5 mg PO BID 07/26/18 03/24/19 History lisinopril-hydrochlorothiazide 1 tab PO QAM 07/26/18 03/24/19 History multivitamin 1 tab PO QAM 07/26/18 03/24/19 History naproxen 500 mg PO BID PRN 07/26/18 03/24/19 History albuterol sulfate 2 inh INHALATION QID PRN 03/09/19 03/24/19 History methocarbamol 500 mg PO HS PRN 03/24/19 03/24/19 History ondansetron HCl 4 mg PO Q6 PRN 03/24/19 03/24/19 History Patient History Medical History Osteoarthritis (Chronic) Hearing deficit (Chronic) HTN (hypertension) (Chronic) DMII (diabetes mellitus, type 2) (Chronic) Pancreatic mass (Chronic) BEING MONITORED Surgical History History of cholecystectomy (Chronic) Family History Grandfather (Maternal) Family history of diabetes mellitus Social History Preferred Language: [place] Communication Ability: Effective Meal Packer Required: No Beliefs That Will Affect Care: None marital status: Current Living Situation: Spouse current occupational status: retired Other Information That Helps Us Care for You: No Feels Safe at Home: Yes Safety Concerns: Feels Safe At This Time Smoking Status: Former smoker Tobacco Type: cigarettes ; Smoking End Date: 1995 ; Second Hand Exposure: Yes ("A LITTLE BIT OF EXPOSURE NOW") ; Hx Alcohol Use: Yes Alcohol type: hard liquor Hx Substance Use: No Review of Systems Review of Systems: All systems reviewed & are unremarkable except as noted in HPI & below Physical Exam Physical Exam: Temp Pulse Resp BP Pulse Ox 36.4 C L 82 12 133/68 94 03/24/19 19:35 03/25/19 08:01 03/25/19 08:01 03/25/19 08:01 03/25/19 08:01 Constitutional: WD/WN, vitals as above Respiratory: normal respiratory effort, lungs clear to auscultation Cardiovascular: RRR, no murmur, no edema Gastrointestinal (Abdomen): normal bowel sounds, soft, nontender, no hepatosplenomegaly Neurologic: PERRL, EOMI, accommodation nl, no face palsy, no dysarthria Results & Data Vital Signs (Past 12 Hours) Vital Signs Pulse Resp BP Pulse Ox 03/25/19 08:01 82 12 133/68 94 03/25/19 07:01 82 9 L 123/66 92 03/25/19 06:01 82 15 129/64 91 03/25/19 05:01 88 12 147/69 H 93 03/25/19 04:01 86 14 137/71 90 03/25/19 03:01 85 11 L 134/69 90 03/25/19 02:01 90 20 143/77 H 93 03/25/19 01:05 88 17 146/70 H 95 03/25/19 01:02 83 31 H 126/110 H 95 03/25/19 00:16 82 16 119/64 95 03/24/19 23:46 79 17 116/63 96 03/24/19 23:32 82 14 101/65 96 03/24/19 23:16 76 10 L 100/57 L 95 03/24/19 23:01 76 16 96/57 L 93 03/24/19 22:46 75 13 105/56 L 95 03/24/19 22:31 77 17 102/53 L 96 03/24/19 22:18 90 21 121/54 L 96 03/24/19 22:01 74 7 L 99/59 L 96 03/24/19 21:46 77 9 L 109/60 94 03/24/19 21:31 73 16 106/63 96 03/24/19 21:16 74 17 112/61 98 Laboratory Results Cardiac Enzymes 03/24/19 03/24/19 03/24/19 Range/Units 15:50 19:06 23:21 AST 54 H (15-37) U/L Troponin I 0.485 H* 2.790 H* 6.500 H* (0-0.045) ng/ml 03/25/19 Range/Units 04:58 AST (15-37) U/L Troponin I 8.950 H* (0-0.045) ng/ml CBC 03/24/19 03/25/19 Range/Units 15:50 04:58 WBC 10.80 12.71 H (4.8-10.8) K/uL RBC 4.02 L 3.84 L (4.7-6.1) M/uL Hgb 12.7 L 12.4 L (14.0-18.0) g/dL Hct 39.1 L 36.3 L (42-52) % Plt Count 151 168 (130-400) K/uL Neut # (Auto) 8.86 H 10.46 H (1.4-6.5) K/uL Lymph # (Auto) 1.56 1.13 L (1.2-3.4) K/uL Duval # (Auto) 0.29 1.08 H (0.11-0.59) K/uL Eos # (Auto) 0.02 0.00 (0-0.5) K/uL Baso # (Auto) 0.02 0.01 (0-0.2) K/uL Comprehensive Metabolic Panel 03/24/19 03/24/19 03/24/19 Range/Units 15:50 19:06 21:47 Sodium 142 142 143 (136-145) mmol/L Potassium 3.9 3.9 4.0 (3.5-5.1) mmol/L Chloride 107 108 H 108 H (98-107) mmol/L Carbon Dioxide 16 L 25 28 (21-32) mmol/L BUN 38 H 40 H 41 H (7-18) mg/dl Creatinine 1.81 H 1.78 H 1.70 H (0.6-1.4) mg/dl Glucose 322 H* 223 H 124 H (70-99) mg/dl Calcium 8.9 8.6 8.6 (8.5-10.1) mg/dl AST 54 H (15-37) U/L ALT 40 (12-78) U/L Alkaline Phosphatase 54 (45-117) U/L Total Protein 6.2 L (6.4-8.2) gm/dl Albumin 3.3 L (3.4-5.0) gm/dl 03/25/19 Range/Units 04:58 Sodium 143 (136-145) mmol/L Potassium 3.7 (3.5-5.1) mmol/L Chloride 107 (98-107) mmol/L Carbon Dioxide 26 (21-32) mmol/L BUN 42 H (7-18) mg/dl Creatinine 1.60 H (0.6-1.4) mg/dl Glucose 139 H (70-99) mg/dl Calcium 8.4 L (8.5-10.1) mg/dl AST (15-37) U/L ALT (12-78) U/L Alkaline Phosphatase (45-117) U/L Total Protein (6.4-8.2) gm/dl Albumin (3.4-5.0) gm/dl Intake and Output 03/24/19 03/25/19 03/25/19 22:59 06:59 14:59 Intake Total 1159.637 / 1405.887 246.25 / 7567.170 3821.463 / 2630.463 Output Total 100 / 400 300 / 400 150 / 150 Balance 1059.637 / 1005.887 -53.75 / 2564.467 0549.463 / 2480.463 Intake: IV 1159.637 / 1405.887 246.25 / 0024.828 5996.463 / 2630.463 NEXTERONE / D5W 360 mg In 200 376.463 / 376.463 ml @ 16.7 mls/hr IV .[id number] [facility] Rx#:[id number] D5W AND 1/2NSS + 20MEQ KCL 20 245 / 245 0 / 0 meq In 1,000 ml @ 100 mls/hr IV .Q10H [facility] Rx#:[id number] NovoLIN R 250 UNITS In Nss 247. 19.387 / 20.637 1.25 / 20.637 0 / 0 5 ml @ 0 UNITS/HR IV .Q0M [facility] Rx#:[id number] Lr 1,000 ml @ 100 mls/hr IV . 999 / 999 1000 / 1000 Q10H [facility] Rx#:[id number] 1/2 NSS + 20MEQ KCL 1000ML 20 122.917 / 122.917 0 / 0 meq In 1,000 ml @ 125 mls/hr IV .Q8H [facility] Rx#:[id number] Rocephin 2,000 mg In D5w 50 ml 18.333 / 18.333 @ 100 mls/hr IV Q24H [facility] Rx#: [id number] Oral 0 / 0 Output: Urine 100 / 400 300 / 400 150 / 150 Other: Weight 92.2 kg
[2019-03-25] MEDS ORDERED: Nursing to Pharmacy Communication ONE ×2 (09:44→14:12)
[2019-03-25] MEDS ORDERED: METOPROLOL TARTRATE 25 MG TAB PO ONE (10:00)
[2019-03-25] MEDS: ASPIRIN 81 MG ECTAB PO SCH (10:06)
[2019-03-25] MEDS: CLOPIDOGREL BISULFATE 75 MG TAB PO SCH (10:06)
[2019-03-25] MEDS: ATORVASTATIN 40 MG TAB PO SCH (10:07)
[2019-03-25] MEDS: AMIODARONE 200 MG TAB PO SCH ×2 (11:38→16:50)
[2019-03-25] MEDS: ICU ELECTROLYTE REPLACEMENT PROTOCOL SCH (12:01)
--- NOTE | 2019-03-25 13:33 | Hospitalist Progress Note ---
Date of Service March 25, 2019 Assessment & Plan (1) Ventricular tachycardia: -Patient presented after ventricular tachycardia arrest, received a short course of CPR, and had spontaneous return of circulation after defibrillation x1. Presenting EKG after the ventricular tachycardia resolved was notable for ST segment depression. Patient underwent emergent cardiac catheterization with PCI, drug-eluting stent to a 95% circumflex occlusion, patient has nonobstructive disease elsewhere -patient's echocardiogram is technically limited. As noted, this was also observed at the time of his 2017 echocardiogram. The left ventricular ejection fraction however appears to be grossly normal. The right ventricle appears hypokinetic. - cardiology service recommends recommend the patient remains in the intensive care unit for close monitoring. We will discontinue IV amiodarone and tra nsition him to oral amiodarone. Start metoprolol tartrate 25 mg twice daily, with caution given the patient's long first-degree AV block. (2) NSTEMI (non-ST elevated myocardial infarction): -medical management of NSTEMI as per cardiology recommendations as above -in addition, patient is currently on aspirin, plavix, atorvastatin -troponins had increased to 8.95 by AM of 03/25/19, no current active chest pain, expect troponin to trend down as further removed from time of cardiac event (3) Hypotension: -initial hypotension likely from initial lack of cardiac perfusion to body during initial acute cardiac event -hypotension has resolved -maintenance IV fluids, transition from 125 cc/hr to 60 cc/hr -holding home dose lisinopril/HCTZ (4) DKA (diabetic ketoacidoses): -admission labs suggest DKA with low HCO3, elevated gap, glucose 322 -Pharmacy Glycemic Management consult by setter up and begun on DKA insulin infusion protocol upon arrival to ICU from [facility] -DKA appears resolved (5) DMII (diabetes mellitus, type 2): -currently on subcutaneous insulin -holding home dose glipizde (6) SOUTH (acute kidney injury): admission creatinine of 1.8 is trending down with IV fluids -continue to hold home dose lisinopril/HCTZ (7) DVT prophylaxis: -Heparin 5000 units every 12h [phone]; [phone] Subjective Patient sitting up in the chair in the ICU. Patient breathing on room air. denies acute pain. denies shortness of breath. no vomiting. ate the meals. no abdomen pain. he has family members at the bedside. keep in ICU as per cardiology service Physical Exam Constitutional: comfortable Eyes: PERRL, conjunctivae normal, anicteric sclerae EOM intact bilaterally ENMT: external ear and nose normal, oropharynx normal Neck: normal visual inspection central line to neck Respiratory: normal respiratory effort Cardiovascular: Rate/Rhythm: regular rate and regular rhythm Gastrointestinal (Abdomen): normal bowel sounds, soft, nontender, no hepatosplenomegaly Musculoskeletal: Head/Neck/Chest: normocephalic and head atraumatic Neurologic: PERRL, EOMI, accommodation nl, no face palsy, no dysarthria Psychiatric: A+Ox3, euthymic affect Results & Data Vital Signs (Past 12 Hours) Vital Signs Temp Pulse Resp BP Pulse Ox 03/25/19 12:01 80 17 121/87 94 03/25/19 11:01 78 14 121/60 94 03/25/19 10:01 81 14 124/63 93 03/25/19 09:01 36.9 C 84 13 136/69 95 03/25/19 08:01 82 12 133/68 94 03/25/19 07:01 82 9 L 123/66 92 03/25/19 06:01 82 15 129/64 91 03/25/19 05:01 88 12 147/69 H 93 03/25/19 04:01 86 14 137/71 90 03/25/19 03:01 85 11 L 134/69 90 03/25/19 02:01 90 20 143/77 H 93
[2019-03-25 14:20] LABS: Estimated Average Glucose 151 mg/dl; Hemoglobin A1C 6.9 % (4.5-5.6)
[2019-03-25 14:37] LABS: Albumin Level 3.1 gm/dl (3.4-5.0); BUN Creatinine Ratio 25.1 (10-20); Calcium 8.1 mg/dl (8.5-10.1); Creatinine Clr Calc Pharmacy 37.5 ml/min; Est GFR (African American) 43.2; Est GFR (Non-African American) 37.3
[2019-03-25 14:46] LABS: Albumin Globulin Ratio 1.1 (0.9-2); Bilirubin,Total 0.4 mg/dl (0.2-1); Globulin 2.8 gm/dl (2.5-4.0); Total Protein 5.9 gm/dl (6.4-8.2); Troponin I 6.55 ng/ml (0-0.045)
--- NOTE | 2019-03-25 15:44 | Pharmacy Report ---
Pharmacy Glycemic Short Note 2 - Date of Service March 25, 2019 - Glycemic Short BSG Results (Last 24 hours): 03/24/19 03/24/19 03/24/19 15:50 19:06 19:28 Glucose 322 H* 223 H POC Glucose 232 H 03/24/19 03/24/19 03/24/19 21:12 21:47 21:50 Glucose 124 H POC Glucose 177 H 126 H 03/24/19 03/24/19 03/25/19 23:00 23:20 00:03 Glucose POC Glucose 107 H 97 92 03/25/19 03/25/19 03/25/19 04:58 05:34 11:22 Glucose 139 H POC Glucose 146 H 141 H 03/25/19 13:55 Glucose 131 H POC Glucose Outpt regimen: * Glipizide 5mg BID * A1c = 6.9% 03/25/19 ASSESSMENT: * Reasonably well controlled type 2 diabetic admitted for Pulseless V-tach Cardiac Arrest secondary to NSTEMI * Patient is now s/p stenting of LCX ,on amiodarone drip and beta-geovanni * For a short period of time patient was on IV insulin drip however this was d/c'd overnight due to quick resolution of metabolic acidosis * BSGs this day have been well controlled thus far * Insulin doses are based upon the following: basal (low stress level + weight) and bolus (moderate stress level + weight) PLAN FOR INPATIENT GLYCEMIC CONTROL: * Lantus 8 units SQ BID * Novolog ACHS * goal: 120-150mg/dL * correction factor: 25mg/dL/unit * carb ratio: 1 unit per 8 gm CHO consumed with meals.
[2019-03-25] MEDS: cefTRIAXone SODIUM 2,000 MG in DEXTROSE 5% 50 ML IV SCH (18:42)
[2019-03-25] MEDS: HEPARIN SOD 5,000 UNIT/0.5 ML VIAL SQ SCH (20:46)
[2019-03-25] MEDS: INSULIN GLARGINE SOLOSTAR 100 UNITS/ML 3 ML PEN SC SCH (20:47)
[2019-03-25] MEDS: METOPROLOL TARTRATE 25 MG TAB PO SCH (20:48)
[2019-03-26 04:32] LABS: Basophils # (auto) 0.02 K/uL (0-0.2); Basophils % (auto) 0.2 %; Eosinophils # (auto) 0.07 K/uL (0-0.5); Eosinophils % (auto) 0.7 %; Hematocrit (blood only) 32.4 % (42-52); Hemoglobin 10.8 g/dL (14.0-18.0); Immature Granulocytes # (auto) 0.03 K/uL (0.00-0.02); Immature Granulocytes % (auto) 0.3 %; Lymphocytes # (auto) 1.63 K/uL (1.2-3.4); Lymphocytes % (auto) 16.4 %; Mean Corpuscular Hemoglobin 31.7 pg (25-34); Mean Corpuscular Hgb Conc 33.3 g/dL (32-36); Mean Platelet Volume 11.7 fL (7.4-10.4); Monocytes # (auto) 1.05 K/uL (0.11-0.59); Monocytes % (auto) 10.6 %; Neutrophils # (auto) 7.14 K/uL (1.4-6.5); Neutrophils % (auto) 71.8 %; Platelet Count 127 K/uL (130-400); RDW Coefficient of Variation 13.8 % (11.5-14.5); RDW Standard Deviation 47.8 fL (36.4-46.3); Red Blood Count 3.41 M/uL (4.7-6.1); White Blood Count 9.94 K/uL (4.8-10.8)
[2019-03-26 04:49] LABS: Albumin Level 2.8 gm/dl (3.4-5.0); BUN Creatinine Ratio 27.9 (10-20); Bilirubin Direct 0.1 mg/dl (0-0.2); Calcium 7.8 mg/dl (8.5-10.1); Creatinine Clr Calc Pharmacy 44.9 ml/min; Est GFR (African American) 53.7; Est GFR (Non-African American) 46.4; Potassium 3.7 mmol/L (3.5-5.1)
[2019-03-26 05:00] LABS: Albumin Globulin Ratio 1.1 (0.9-2); Bilirubin,Total 0.4 mg/dl (0.2-1); Globulin 2.6 gm/dl (2.5-4.0); Phosphorus 2.3 mg/dl (2.5-4.9); Total Protein 5.4 gm/dl (6.4-8.2); Troponin I 4.23 ng/ml (0-0.045)
--- NOTE | 2019-03-26 07:33 | Critical Care Progress Note ---
Date of Service March 26, 2019 Assessment & Plan (1) Admitted to intensive care unit: Assessment and Plan: -Ventricular tachycardia likely secondary to coronary ischemia versus possible urinary tract infection (resolved) -Shock, possibly mixed cardiogenic, hypovolemic and component of septic shock as well (Resolved) -Complicated UTI (improving) -Mild DKA (resolved) Neurologic: Cam negative, no concerns Pulmonary: satting well on room air Cardiovascular: Status post PCI circumflex Patient presented after being found down in the field which shocked twice. Upon presentation he was started on amiodarone, had elevated troponins and EKG changes was subsequently taken to the [facility] for diagnostic cath. 90% lesion of the circumflex was treated via PCI. -Postop day 1 -Troponins peaked at 8 now downtrending -Cardiology consulted following recommendations -Amiodarone 200 mg p.o. 3 times daily -LFTs and TSH stable -Will need baseline PFTs as an outpatient -Metoprolol tartrate 25 mg twice daily -advance diet -Echo technically limited LVEF appears to be normal RV appears to be hypokinetic Gastrointestinal: Heart healthy carb consistent diet Renal: SOUTH (resolved) Creatinine on admission was 1.8 has been drawn tending, now 1.3 Continue gentle IV hydration Infectious disease: Continue ceftriaxone transition to oral Omnicef 300 mg 3 times daily continue for 5 days Hematologic: No issues currently Endocrine: Replete electrolytes as indicated Given K-Phos, kcl, mag today VTE prophylaxis: Heparin 5000 units every 12h Disposition: Downgrade Thank you for allowing me to participate this patient's care please see my attendings documentation for further clarification. Supervising Physician Co-Signing Physician Notes Dr. Bean was the resident-physician during care of patient. I separately evaluated patient for law portions of the history and the exam. I was present during the critical portion of medical decision making, and I discussed the case with the resident. I generally agree with the findings and plan except for any additions/exceptions noted. Patient did not have any runs of ventricular tachycardia yesterday. He has had a couple skipped beats on his telemetry. He is running low on his blood pressure. He seems to be mentating well. He denies any complaint. Continue metoprolol and amiodarone. LFTs and TSH stable. Patient can be transferred to the floor. Subjective Patient sitting in his chair this morning in no acute distress. Reports doing well overnight. From a telemetry standpoint did well occasional intermittent pauses associated with first-degree AV block. Patient is voiding, stooling, tolerating a diet, slept well overnight no acute concerns at present. Answered all questions. Stable for downgrade Physical Exam Physical Exam: General:No acute distress HEENT: Normocephalic atraumatic Neck: Trachea midline, no significant JVD Cardiac: Regular rate and rhythm I do not appreciate murmurs rubs or gallops, normal S1, normal S2, negative pedal edema, negative calf tenderness Respiratory: Clear to auscultation bilaterally with symmetrical chest rise GI: Bowel sounds present nontender nondistended MSK: Moves all extremities Skin: Surgical site clean dry and intact Neuro: AAO x4 Psych: Calm and cooperative Results & Data Vital Signs (Past 12 Hours) Vital Signs Temp Pulse Resp BP BP Pulse Ox 03/26/19 04:21 36.6 C 03/26/19 04:01 67 16 101/56 L 91 03/26/19 03:01 72 9 L 105/55 L 92 03/26/19 02:01 73 13 105/54 L 93 03/26/19 01:02 78 15 114/59 L 94 03/25/19 23:07 37.3 C 15 103/57 L 93 03/25/19 23:06 72 17 103/57 L 93 03/25/19 23:00 69 16 91 03/25/19 22:01 72 38 H 112/54 L 93 03/25/19 21:01 74 19 102/47 L 91 03/25/19 20:15 37.2 C 03/25/19 20:01 75 18 107/51 L 94 PG Care Time/CCT Total # of Minutes Spent Total Time Spent with Patient: Total time spent is greater than 50% in coordination of care (as documented) at patient's floor/unit and/or counseling patient: Critical Care Time: No Resident Activity Tracking Resident Involvement: Resident Care Provided Care Provided: Adult Hospital Medicine (ICu: S/P PCI, Vfib, found down, )
[2019-03-26] MEDS: INSULIN ASPART 100 UNITS/ML 3 ML PEN SC SCH ×4 (07:50→20:48)
[2019-03-26] MEDS: AMIODARONE 200 MG TAB PO SCH ×3 (07:51→17:23)
[2019-03-26] MEDS ORDERED: POTASSIUM CHLORIDE 20 MEQ TABCR PO STA (08:32)
[2019-03-26] MEDS: ATORVASTATIN 40 MG TAB PO SCH (08:47)
[2019-03-26] MEDS: CLOPIDOGREL BISULFATE 75 MG TAB PO SCH (08:48)
[2019-03-26] MEDS: METOPROLOL TARTRATE 25 MG TAB PO SCH ×2 (08:49→20:54)
[2019-03-26] MEDS: INSULIN GLARGINE SOLOSTAR 100 UNITS/ML 3 ML PEN SC SCH (08:50)
[2019-03-26] MEDS: HEPARIN SOD 5,000 UNIT/0.5 ML VIAL SQ SCH ×2 (08:50→20:55)
[2019-03-26] MEDS: ASPIRIN 81 MG ECTAB PO SCH (08:50)
[2019-03-26] MEDS: ICU ELECTROLYTE REPLACEMENT PROTOCOL SCH ×2 (09:04→09:15)
[2019-03-26] MEDS ORDERED: POTASSIUM CHLORIDE 20 MEQ TABCR PO SCH ×2 (10:00→12:00)
[2019-03-26] MEDS ORDERED: MAGNESIUM OXIDE 400 MG TAB PO SCH (10:00)
[2019-03-26] MEDS ORDERED: POT PHOSPHATE MONOBASIC W/ SOD TAB PO SCH (10:00)
[2019-03-26] MEDS: CEFDINIR 300 MG CAP PO SCH ×2 (10:19→20:53)
[2019-03-26] MEDS: POT PHOSPHATE MONOBASIC W/ SOD TAB PO SCH ×3 (10:19→17:23)
--- NOTE | 2019-03-26 11:00 | Cardiology Progress Note ---
Date of Service March 26, 2019 Assessment & Plan (1) Ventricular tachycardia: (2) NSTEMI (non-ST elevated myocardial infarction): Status post ventricular tachycardia arrest with successful CPR, defibrillation spontaneous return of circulation, mental status intact. The substrate for the hypokinesis tachycardia was likely the circumflex territory ischemia, for which patient underwent drug-eluting stent placement. LVEF is preserved. Right ventricular hypokinesis noted usual case like this. Continue aspirin, clopidogrel, atorvastatin. Liver function test stable. (3) Hypokalemia: Replace intravenously (4) First degree AV block: Patient on metoprolol given NM, and is on oral amiodarone given the ventricular tachycardia. He had a long first-degree AV block at baseline, and now it is 300 ms. We will continue to follow this. For now we will continue oral amiodarone, however the risk of him having recurrent ventricular arrhythmia is probably low given normal LVEF, and the fact that he is revascularized without significant obstructive disease elsewhere. As patient's progress develops, will reassess the benefits versus risks of amiodarone. Liver function testing at baseline TSH were within normal limits. Patient stable for transfer to the PCU. Activity as tolerated. If he continues to progress despite potential discharge over the weekend, and I have already requested a follow-up visit at a 2-week interval with our office. Subjective Chief complaint: Follow-up diaphoresis, nauseousness, syncope, cardiac arrest Subjective: Patient feeling well. He is at the bedside chair. His left internal jugular central venous catheter has been removed. Telemetry reveals sinus rhythm. There is some artifact noted which is reproduced with the patient moves, but I do not see any additional VT. Review of Systems Review of Systems: All systems reviewed & are unremarkable except as noted in HPI & below Physical Exam Physical Exam: Temp Pulse Resp BP Pulse Ox 36.5 C 61 20 97/48 L 95 03/26/19 10:02 03/26/19 10:02 03/26/19 10:02 03/26/19 10:02 03/26/19 10:02 Constitutional: WD/WN, vitals as above Neck: Site of left internal jugular central venous catheter is clean dry and intact with a bandage. Respiratory: normal respiratory effort, lungs clear to auscultation Cardiovascular: RRR, no murmur, no edema Vessels: no JVD Gastrointestinal (Abdomen): normal bowel sounds, soft, nontender, no hepatosplenomegaly Neurologic: PERRL, EOMI, accommodation nl, no face palsy, no dysarthria Results & Data Vital Signs (Past 12 Hours) Vital Signs Temp Pulse Resp BP BP Pulse Ox 03/26/19 10:02 36.5 C 61 20 97/48 L 95 03/26/19 09:01 79 17 117/51 L 93 03/26/19 08:01 79 12 82/55 L 94 03/26/19 08:00 77 14 123/54 L 93 03/26/19 07:55 67 03/26/19 07:01 65 15 120/67 94 03/26/19 07:00 66 15 94 03/26/19 04:21 36.6 C 03/26/19 04:01 67 16 101/56 L 91 03/26/19 03:01 72 9 L 105/55 L 92 03/26/19 02:01 73 13 105/54 L 93 03/26/19 01:02 78 15 114/59 L 94 03/25/19 23:07 37.3 C 15 103/57 L 93 03/25/19 23:06 72 17 103/57 L 93 03/25/19 23:00 69 16 91 Laboratory Results Cardiac Enzymes 03/25/19 03/26/19 Range/Units 13:55 04:20 AST 59 H 41 H (15-37) U/L Troponin I 6.550 H* 4.230 H* (0-0.045) ng/ml CBC 03/26/19 Range/Units 04:20 WBC 9.94 (4.8-10.8) K/uL RBC 3.41 L (4.7-6.1) M/uL Hgb 10.8 L (14.0-18.0) g/dL Hct 32.4 L (42-52) % Plt Count 127 L (130-400) K/uL Neut # (Auto) 7.14 H (1.4-6.5) K/uL Lymph # (Auto) 1.63 (1.2-3.4) K/uL [place] # (Auto) 1.05 H (0.11-0.59) K/uL Eos # (Auto) 0.07 (0-0.5) K/uL Baso # (Auto) 0.02 (0-0.2) K/uL Comprehensive Metabolic Panel 03/25/19 03/26/19 Range/Units 13:55 04:20 Sodium 141 142 (136-145) mmol/L Potassium 4.0 3.7 (3.5-5.1) mmol/L Chloride 108 H 110 H (98-107) mmol/L Carbon Dioxide 27 28 (21-32) mmol/L BUN 41 H 38 H (7-18) mg/dl Creatinine 1.64 H 1.37 (0.6-1.4) mg/dl Glucose 131 H 117 H (70-99) mg/dl Calcium 8.1 L 7.8 L (8.5-10.1) mg/dl Direct Bilirubin 0.1 (0-0.2) mg/dl AST 59 H 41 H (15-37) U/L ALT 39 30 (12-78) U/L Alkaline Phosphatase 48 43 L (45-117) U/L Total Protein 5.9 L 5.4 L (6.4-8.2) gm/dl Albumin 3.1 L 2.8 L (3.4-5.0) gm/dl Intake and Output 03/25/19 03/26/19 03/26/19 22:59 06:59 14:59 Intake Total 1018.667 / 4842.036 400 / 4842.036 1175 / 1175 Output Total 450 / 1201 600 / 1201 Balance 568.667 / 3641.036 -200 / 3641.036 1174 / 1174 Intake: IV 578.667 / 2748.036 775 / 775 Lr 1,000 ml @ 60 mls/hr IV . 457 / 457 775 / 775 [id number] [facility] Rx#:[id number] Rocephin 2,000 mg In D5w 50 ml 121.667 / 121.667 @ 100 mls/hr IV Q24H [facility] Rx#: [id number] Oral 440 / 840 400 / 840 400 / 400 Output: Urine 450 / 1200 600 / 1200 # Bowel Movements Other: # Unmeasured Voids 1 Weight 93.5 kg Diagnostic Findings EKG performed today 03/26/2019 reviewed independently revealed sinus rhythm at 79 bpm with first-degree AV block, VT interval 304 ms, compared to the prior tracing, the nonspecific T wave abnormality noted in the lateral leads has resolved. Medications Administered Current Inpatient Medications Amiodarone HCl (Cordarone) 200 mg PO TIDM [facility] Stop: 04/24/19 11:59 Last Admin: 03/26/19 07:51 Dose: 200 mg Documented by: Aspirin (Ecotrin Ectab) 81 mg PO QAM [facility] Stop: 04/24/19 08:59 Last Admin: 03/26/19 08:50 Dose: 81 mg Documented by: Atorvastatin Calcium (Lipitor) 40 mg PO QAM [facility] Stop: 04/24/19 08:59 Last Admin: 03/26/19 08:47 Dose: 40 mg Documented by: Cefdinir (Omnicef Cap) 300 mg PO BID [facility] Stop: 04/02/19 23:59 Last Admin: 03/26/19 10:19 Dose: 300 mg Documented by: Clopidogrel Bisulfate (Plavix) 75 mg PO QAM [facility] Stop: 04/24/19 08:59 Last Admin: 03/26/19 08:48 Dose: 75 mg Documented by: Dextrose (Dextrose 50%) 25 - 50 ml IV UD PRN; Protocol PRN Reason: Hypoglycemia Protocol Stop: 04/23/19 19:44 Glucagon (Glucagen) 1 mg IM UD PRN; Protocol PRN Reason: Hypoglycemia Protocol Stop: 04/23/19 19:44 Glucose (Glucose 40%) 15 - 30 gm PO UD PRN; Protocol PRN Reason: Hypoglycemia Protocol Stop: 04/23/19 19:44 Glucose (Dex4 Glucose) 4 - 8 tabs PO UD PRN; Protocol PRN Reason: Hypoglycemia Protocol Stop: 04/23/19 19:44 Heparin Sodium (Beef Lung) (Heparin Sod 10 Unit/Ml Flush) 5 ml FLUSH PRN PRN PRN Reason: Flush Stop: 04/23/19 23:43 Heparin Sodium (Porcine) (Heparin Sodium (Porcine)) 5,000 units SQ Q12 [facility] Stop: 04/24/19 20:59 Last Admin: 03/26/19 08:50 Dose: 5,000 units Documented by: Insulin Aspart (Novolog Flexpen) 0 units SC ACHS [facility] Stop: 04/24/19 16:29 Last Admin: 03/26/19 07:50 Dose: 8 units Documented by: Insulin Glargine (Lantus Solostar Pen) 8 units SC BID [facility]; Protocol Stop: 04/24/19 20:59 Last Admin: 03/26/19 08:50 Dose: 8 units Documented by: Metoprolol Tartrate (Lopressor) 25 mg PO BID [facility] Stop: 04/24/19 20:59 Last Admin: 03/26/19 08:49 Dose: 25 mg Documented by: Miscellaneous (Carbohydrates For Hypoglycemia) 15 - 30 gm PO UD PRN PRN Reason: Hypoglycemia Treatment Stop: 04/23/19 19:44 Miscellaneous Information (Consult Glycemic Management Pharmacy) 1 ea N/A UD PRN PRN Reason: Consult Stop: 04/23/19 17:33 Potassium Phosphate (Phospha 250 Neutral [phone] Mg) 2 tab PO Q4H [facility] Stop: 03/26/19 18:01 Last Admin: 03/26/19 10:19 Dose: 2 tab Documented by:
--- NOTE | 2019-03-26 11:09 | Hospitalist Progress Note ---
Date of Service March 26, 2019 Assessment & Plan (1) Ventricular tachycardia: -Patient presented after ventricular tachycardia arrest, received a short course of CPR, and had spontaneous return of circulation after defibrillation x1. Presenting EKG after the ventricular tachycardia resolved was notable for ST segment depression. Patient underwent emergent cardiac catheterization with PCI, drug-eluting stent to a 95% circumflex occlusion, patient has nonobstructive disease elsewhere -patient's echocardiogram is technically limited. As noted, this was also observed at the time of his 2017 echocardiogram. The left ventricular ejection fraction however appears to be grossly normal. The right ventricle appears hypokinetic. -patient was on IV amiodarone when in the ICU and transitioned to oral amiodarone on 03/25/19 wit the metoprolol tartrate - cardiology service Dr. Diggs evaluated the patient and recommends recommend the patient can be transferred out of remains intensive care unit to telemetry unit on 03/26/19 - continue amiodarone and metoprolol (2) NSTEMI (non-ST elevated myocardial infarction): -medical management of NSTEMI as per cardiology recommendations as above -on aspirin, plavix, atorvastatin -troponins had peaked to 8.95 by AM of 03/25/19, no current active chest pain, and troponins downtrending (3) Hypotension: -initial hypotension likely from initial lack of cardiac perfusion to body during initial acute cardiac event -hypotension had resolved -off IV fluids as per cardiology -holding home dose lisinopril/HCTZ (4) DKA (diabetic ketoacidoses): -admission labs suggest DKA with low HCO3, elevated gap, glucose 322 -Pharmacy Glycemic Management consult by hone operator and begun on DKA insulin infusion protocol upon arrival to ICU from [facility] -DKA resolved (5) DMII (diabetes mellitus, type 2): -currently on subcutaneous insulin -holding home dose glipizde (6) SOUTH (acute kidney injury): admission creatinine of 1.8 and trended down with IV fluids -creatinine is currently 1.37 -continue to hold home dose lisinopril/HCTZ Hypophosphatemia -serum phosphate is 2.3 on 03/26/19 and ICU team ordered phosphorous supplements Urinary Tract Infection suspected -admission urine analysis with 1+ bacteria, urine culture More than three types of organisms present, all low counts mixed probable skin jonnathan -ICU team started patient on antibiotics and recommends to continue ceftriaxone transition to oral Omnicef 300 mg 3 times daily continue for 5 days (7) DVT prophylaxis: -Heparin 5000 units every 12h [phone]; [phone] Subjective Patient seen and examined in the ICU. Sitting up in chair. family members at bedside. breathing on room air. denies chest pain or palpitations. no abdomen pain. no vomiting. no choking. eats the meals Physical Exam Constitutional: comfortable Eyes: PERRL, conjunctivae normal, anicteric sclerae EOM intact bilaterally ENMT: external ear and nose normal, oropharynx normal Neck: normal visual inspection Respiratory: normal respiratory effort Cardiovascular: Rate/Rhythm: regular rate and regular rhythm Gastrointestinal (Abdomen): normal bowel sounds, soft, nontender, no hepatosplenomegaly Musculoskeletal: Head/Neck/Chest: normocephalic and head atraumatic Neurologic: PERRL, EOMI, accommodation nl, no face palsy, no dysarthria Psychiatric: A+Ox3, euthymic affect Results & Data Vital Signs (Past 12 Hours) Vital Signs Temp Pulse Resp BP BP Pulse Ox 03/26/19 10:02 36.5 C 61 20 97/48 L 95 03/26/19 09:01 79 17 117/51 L 93 03/26/19 08:01 79 12 82/55 L 94 03/26/19 08:00 77 14 123/54 L 93 03/26/19 07:55 67 03/26/19 07:01 65 15 120/67 94 03/26/19 07:00 66 15 94 03/26/19 04:21 36.6 C 03/26/19 04:01 67 16 101/56 L 91 03/26/19 03:01 72 9 L 105/55 L 92 03/26/19 02:01 73 13 105/54 L 93 03/26/19 01:02 78 15 114/59 L 94 03/25/19 23:07 37.3 C 15 103/57 L 93 03/25/19 23:06 72 17 103/57 L 93
--- NOTE | 2019-03-26 13:16 | Pharmacy Report ---
Pharmacy Glycemic Short Note 2 - Date of Service March 26, 2019 - Glycemic Short BSG Results (Last 24 hours): 03/25/19 03/25/19 03/25/19 13:55 16:30 20:42 Glucose 131 H POC Glucose 137 H 152 H 03/26/19 03/26/19 03/26/19 04:20 06:36 11:25 Glucose 117 H POC Glucose 126 H 101 H Outpt regimen: * Glipizide 5mg BID * A1c = 6.9% 03/25/19 The patient is currently receiving: * Basal Insulin: Lantus 8 units every 12 hours * Correctional Insulin: Novolog Correction per scale ACHS Goal Range: Low 120 mg/dL - High 150 mg/dL Correction Factor: 25 mg/dL/unit * Prandial Insulin: Per carb ratio of 1 unit per 8 grams CHO consumed * Oral Agents: None currently ASSESSMENT: 03/26 * Fasting BSG 127 this AM w/ 8 units Lantus on board, will reduce ongoing dose in light of today's FBS and A1c * Novolog CF and CR performed well yesterday, however BSGs are trending lower today with basal on board. Will lessen doses slightly 03/25 * Reasonably well controlled type 2 diabetic admitted for Pulseless V-tach Cardiac Arrest secondary to NSTEMI * Patient is now s/p stenting of LCX ,on amiodarone drip and beta-geovanni * For a short period of time patient was on IV insulin drip however this was d/c'd overnight due to quick resolution of metabolic acidosis * BSGs this day have been well controlled thus far * Insulin doses are based upon the following: basal (low stress level + weight) and bolus (moderate stress level + weight) PLAN FOR INPATIENT GLYCEMIC CONTROL: * Lantus 10 units SQ Q AM (dose reduction) * Novolog ACHS (dose reduction) * goal: 110-140mg/dL * correction factor: 30 mg/dL/unit * carb ratio: 1 unit per 10 gm CHO consumed with meals. DISCHARGE PLAN: * given A1c results, would resume home regimen of Glipizide on discharge if not experiencing hypoglycemia with this regimen
[2019-03-27] MEDS: AMIODARONE 200 MG TAB PO SCH ×2 (07:56→12:09)
[2019-03-27] MEDS: CLOPIDOGREL BISULFATE 75 MG TAB PO SCH (07:56)
[2019-03-27] MEDS: ATORVASTATIN 40 MG TAB PO SCH (07:56)
[2019-03-27] MEDS: ASPIRIN 81 MG ECTAB PO SCH (07:56)
[2019-03-27] MEDS: CEFDINIR 300 MG CAP PO SCH ×2 (07:57→20:11)
[2019-03-27] MEDS: INSULIN ASPART 100 UNITS/ML 3 ML PEN SC SCH ×4 (07:58→21:40)
[2019-03-27] MEDS: HEPARIN SOD 5,000 UNIT/0.5 ML VIAL SQ SCH ×2 (07:58→20:11)
[2019-03-27] MEDS ORDERED: INSULIN GLARGINE SOLOSTAR 100 UNITS/ML 3 ML PEN SC SCH (09:00)
[2019-03-27 09:03] LABS: BUN Creatinine Ratio 29.3 (10-20); Calcium 8.7 mg/dl (8.5-10.1); Creatinine Clr Calc Pharmacy 49.6 ml/min; Est GFR (Non-African American) 51.8; Potassium 3.8 mmol/L (3.5-5.1)
[2019-03-27 09:08] LABS: Phosphorus 3.3 mg/dl (2.5-4.9)
[2019-03-27] MEDS: METOPROLOL TARTRATE 25 MG TAB PO SCH ×2 (10:58→20:10)
--- NOTE | 2019-03-27 12:03 | Pharmacy Report ---
Glycemic Control Progress Note - Date of Service March 27, 2019 - Scope Glycemic Pharmacist consulted for glycemic control to write orders per [facility] inpatient glycemic control protocol. - Objective Accuchecks BSG(last 24 hours):: 03/26/19 03/26/19 03/27/19 16:34 20:18 07:25 Glucose POC Glucose 120 H 128 H 117 H 03/27/19 03/27/19 08:13 11:20 Glucose 173 H POC Glucose 116 H HbA1c:: Hemoglobin A1c 6.9 % (4.5-5.6) H 03/25/19 13:55 - Recent Pertinent Medications The patient is currently receiving: * Basal insulin: Lantus 10 units every 24 hours * Correctional Insulin: Novolog Correction per scale ACHS Goal Range: Low 110 mg/dL - High 140 mg/dL Correction Factor: 30 mg/dL/unit * Prandial insulin: Per carb ratio of 1 unit per 10 grams CHO consumed - Outpatient Anti-Diabetic Meds GLIPIZIDE 5 MG BID - Assessment & Plan ASSESSMENT: * See progress note from 03/25/19 for more background info, in short: * Pt receiving SQ basal bolus insulin regimen for hyperglycemia secondary to baseline DM (outpatient regimen on hold). * Patient is currently receiving an average of 20 units of insulin per day * 8 units of basal insulin * 12 units of prandial/correctional insulin * BSGs ranging 101 - 128 mg/dl over the past 24hrs * Changes needed to insulin regimen: * AM Fasting BSG = 117 mg/dl. This is in goal range for patient based on inpatient targets and co-morbidities. Concerned that fasting will continue to trend downwards. Create scale for tomorrow morning. * Post-prandial BSGs are well controlled. Concerned that may be too aggressive as all blood sugars less than 130 mg/dL. Loosen to CR of 15. * Total daily dose = <20 units. PLAN FOR INPATIENT GLYCEMIC CONTROL: * Decreasing Lantus 5-10 units SQ qAM * Lantus 5 units if blood sugar under 120 mg/dL * Lantus 8 units if blood sugar 120-180 mg/dL * Lantus 10 units if blood sugar greater than 180 mg/dL * Continuing correction factor of 30 mg/dl/unit * LOOSENING carb ratio to 1 unit per 15 grams CHO consumed * Continuing goal range of Low 110 mg/dL - High 140 mg/dL RECOMMENDATIONS FOR DISCHARGE: * Patient well controlled for age and co-morbidities. Continue home regimen. * Please note that the plan above was derived based on current level of insulin resistance and hospital stress. These recommendations are appropriate for inpatient admission only. Plan of care upon discharge will need to be reassessed to avoid potential outpatient hypo/hyperglycemia. Thank you.
--- NOTE | 2019-03-27 13:16 | Cardiology Progress Note ---
Date of Service March 27, 2019 Assessment & Plan (1) Ventricular tachycardia: (2) NSTEMI (non-ST elevated myocardial infarction): (3) First degree AV block: Patient presented with ventricular tachycardia arrest, spontaneous return of circulation occurred after defibrillation performed prehospital by EMS. 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 Would appear that the substrate of his presentation was myocardial ischemia, and he has since been revascularized without significant obstructive residual CAD elsewhere. Although his echocardiogram was somewhat technically limited, his ejection fraction was normal. He had a brief recurrence of wide-complex rhythm shortly after his cardiac catheterization, this was likely due to reperfusion arrhythmia, without any significant ventricular arrhythmia in the meantime. A long first-degree AV block is noted as described with [place] interval of 360 ms. At this time, I recommend ongoing medication therapy for non-ST segment elevation myocardial infarction including aspirin, clopidogrel, metoprolol tartrate 25 mg twice daily, and atorvastatin 40 mg daily. I do not think a LifeVest wearable defibrillator or AICD is indicated given normal LVEF, and culprit ischemia substrate has been corrected with PCI. Along the same lines, will discontinue amiodarone, and observe in an effort to minimize medication side effects/toxicity. Patient is to increase his activity as tolerated today. He typically walks with the assistance of a walker or cane at home. He has been ambulating short distances to the bathroom, and his nurse, is going to help take him for a longer walk to ensure that he is unsteady on his feet for proposed discharge, perhaps tomorrow 03/28/2019. Cardiology follow-up has already been requested an appointment has been scheduled. Subjective Chief complaint: Follow-up nauseousness, shortness of breath, syncope Subjective: Patient is feeling well. He is watching a college football game enjoying the company of his spouse and his son today. He is sitting in the bedside chair. Telemetry reveals sinus rhythm in the range of 50 to 70 bpm. An EKG was performed this morning revealing a sinus rhythm with long first-degree AV block, [place] interval [address] segments. On telemetry, the first-de gree AV block appears to much less pronounced compared to the EKG. Review of Systems Review of Systems: All systems reviewed & are unremarkable except as noted in HPI & below Physical Exam Physical Exam: Temp Pulse Resp BP Pulse Ox 36.8 C 62 19 133/55 L 96 03/27/19 10:55 03/27/19 10:55 03/27/19 10:55 03/27/19 10:55 03/27/19 10:55 Constitutional: WD/WN, vitals as above Respiratory: normal respiratory effort, lungs clear to auscultation Cardiovascular: RRR, no murmur, no edema Vessels: no JVD Gastrointestinal (Abdomen): normal bowel sounds, soft, nontender, no hepatosplenomegaly Skin: no rashes, warm and dry Neurologic: PERRL, EOMI, accommodation nl, no face palsy, no dysarthria Results & Data Vital Signs (Past 12 Hours) Vital Signs Temp Pulse Pulse Resp BP BP Pulse Ox 03/27/19 10:55 36.8 C 62 19 133/55 L 96 03/27/19 07:08 36.8 C 65 18 96/49 L 95 03/27/19 04:00 36.8 C 62 18 96/59 L 95 Laboratory Results Comprehensive Metabolic Panel 03/27/19 Range/Units 08:13 Sodium 143 (136-145) mmol/L Potassium 3.8 (3.5-5.1) mmol/L Chloride 110 H (98-107) mmol/L Carbon Dioxide 26 (21-32) mmol/L BUN 37 H (7-18) mg/dl Creatinine 1.25 (0.6-1.4) mg/dl Glucose 173 H (70-99) mg/dl Calcium 8.7 (8.5-10.1) mg/dl Intake and Output 03/26/19 03/27/19 03/27/19 22:59 06:59 14:59 Intake Total 540 / 1985 150 / 1985 Output Total 450 / 1051 600 / 1051 Balance 90 / 934 -450 / 934 Intake: Oral 540 / 1210 150 / 1210 Output: Urine 450 / 1050 600 / 1050 Other: Weight 93.9 kg Medications Administered Current Inpatient Medications Aspirin (Ecotrin Ectab) 81 mg PO [facility] Stop: 04/24/19 08:59 Last Admin: 03/27/19 07:56 Dose: 81 mg Documented by: [facility]orvastatin [facility] [place]: 04/24/19 08:59 Last Admin: 03/27/19 07:56 Dose: 40 mg Documented by: Cefdinir (Omnicef Cap) 300 mg PO BID [facility] Stop: 04/02/19 23:59 Last Admin: 03/27/19 07:57 Dose: 300 mg Documented by: Clopidogrel Bisulfate (Plavix) 75 mg PO QAM [facility] Stop: 04/24/19 08:59 Last Admin: 03/27/19 07:56 Dose: 75 mg Documented by: Dextrose (Dextrose 50%) 25 - 50 ml IV UD PRN; Protocol PRN Reason: Hypoglycemia Protocol Stop: 04/23/19 19:44 Glucagon (Glucagen) 1 mg IM UD PRN; Protocol PRN Reason: Hypoglycemia Protocol Stop: 04/23/19 19:44 Glucose (Glucose 40%) 15 - 30 gm PO UD PRN; Protocol PRN Reason: Hypoglycemia Protocol Stop: 04/23/19 19:44 Glucose (Dex4 Glucose) 4 - 8 tabs PO UD PRN; Protocol PRN Reason: Hypoglycemia Protocol Stop: 04/23/19 19:44 Heparin Sodium (Beef Lung) (Heparin Sod 10 Unit/Ml Flush) 5 ml FLUSH PRN PRN PRN Reason: Flush Stop: 04/23/19 23:43 Heparin Sodium (Porcine) (Heparin Sodium (Porcine)) 5,000 units SQ Q12 [facility] Stop: 04/24/19 20:59 Last Admin: 03/27/19 07:58 Dose: 5,000 units Documented by: Insulin Aspart (Novolog Flexpen) 0 units SC [facility] Stop: 04/24/19 16:29 Last Admin: 03/27/19 12:07 Dose: 2 units Documented by: Insulin Glargine (Lantus Solostar Pen) 0 units SC [facility]; Protocol Stop: 04/27/19 08:59 Metoprolol Tartrate (Lopressor) 25 mg PO BID [facility] Stop: 04/24/19 20:59 Last Admin: 03/27/19 10:58 Dose: 25 mg Documented by: Miscellaneous (Carbohydrates For Hypoglycemia) 15 - 30 gm PO UD PRN PRN Reason: Hypoglycemia Treatment Stop: 04/23/19 19:44 Miscellaneous Information (Consult Glycemic Management Pharmacy) 1 ea N/A UD PRN PRN Reason: Consult Stop: 04/23/19 17:33
--- NOTE | 2019-03-27 14:03 | Hospitalist Progress Note ---
Date of Service March 27, 2019 Assessment & Plan (1) Ventricular tachycardia: -as per sum[facility] of cardiology service Dr. Diggs: "Patient presented with ventricular tachycardia arrest, spontaneous return of circulation occurred after defibrillation performed prehospital by EMS. 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 Would appear that the substrate of his presentation was myocardial ischemia, and he has since been revascularized without significant obstructive residual CAD elsewhere. Although his echocardiogram was somewhat technically limited, his ejection fraction was normal. He had a brief recurrence of wide-complex rhythm shortly after his cardiac catheterization, this was likely due to reperfusion arrhythmia, without any significant ventricular arrhythmia in the meantime." -patient's echocardiogram is technically limited. As noted, this was also observed at the time of his 2017 echocardiogram. The left ventricular ejection fraction however appears to be grossly normal. The right ventricle appears hypokinetic. -patient was on IV amiodarone when in the ICU and transitioned to oral amiodarone on 03/25/19 with the metoprolol tartrate -transferred out of remains intensive care unit to telemetry unit on 03/26/19 as per cardiology service -amiodarone discontinued by cardiology service on 03/27/19 (2) First degree AV block: -noted when patient was in the ICU -CA interval on EKG on 03/27/19 is 360 ms (3) NSTEMI (non-ST elevated myocardial infarction): -medical management of NSTEMI -troponins had peaked to 8.95 by AM of 03/25/19, no current active chest pain, and troponins downtrending -aspirin, clopidogrel, metoprolol tartrate 25 mg twice daily, and atorvastatin 40 mg daily -cardiology service does not think a LifeVest wearable defibrillator or AICD is indicated given normal LVEF, and culprit ischemia substrate has been corrected with PCI (4) Hypotension: -initial hypotension likely from initial lack of cardiac perfusion to body during initial acute cardiac event -hypotension had resolved -holding home dose lisinopril/HCTZ as AM blood pressure still on the lower side (5) DKA (diabetic ketoacidoses): -admission labs suggest DKA with low HCO3, elevated gap, glucose 322 -Pharmacy Glycemic Management consult by marbleizing machine tender and begun on DKA insulin infusion protocol upon arrival to ICU from Sales Donor Recruitment Representative -DKA resolved (6) DMII (diabetes mellitus, type 2): -currently on subcutaneous insulin -holding home dose glipizde (7) SOUTH (acute kidney injury): admission creatinine of 1.8 and trended down with IV fluids -creatinine is currently 1.37 -continue to hold home dose lisinopril/HCTZ Hypophosphatemia -serum phosphate is 2.3 on 03/26/19 and ICU team ordered phosphorous supplements -serum phosphate is 3.3 on 03/27/19 Urinary Tract Infection suspected -admission urine analysis with 1+ bacteria, urine culture More than three types of organisms present, all low counts mixed probable skin jonnathan -ICU team started patient on antibiotics and recommends ceftriaxone transition to oral Omnicef 300 mg 3 times daily started on 03/26/19 for 5 days (8) DVT prophylaxis: -Heparin 5000 units every 12h [phone]; [phone] Subjective Patient seen and examined in the telemetry fernandez. denies chest pain. denies palpitations. First degree block noted to be more protracted today on EKG with CA interval of 360 ms but patient has been asymptomatic. no vomiting. no nausea. no dizziness. no headache. no complaints Physical Exam Constitutional: comfortable Eyes: PERRL, conjunctivae normal, anicteric sclerae EOM intact bilaterally ENMT: external ear and nose normal, oropharynx normal Neck: normal visual inspection Respiratory: normal respiratory effort Cardiovascular: Rate/Rhythm: regular rate and regular rhythm Gastrointestinal (Abdomen): normal bowel sounds, soft, nontender, no hepatosplenomegaly Musculoskeletal: Head/Neck/Chest: normocephalic and head atraumatic Neurologic: PERRL, EOMI, accommodation nl, no face palsy, no dysarthria Psychiatric: A+Ox3, euthymic affect Results & Data Vital Signs (Past 12 Hours) Vital Signs Temp Pulse Pulse Resp BP BP Pulse Ox 03/27/19 10:55 36.8 C 62 19 133/55 L 96 03/27/19 07:08 36.8 C 65 18 96/49 L 95 03/27/19 04:00 36.8 C 62 18 96/59 L 95
[2019-03-28] MEDS: INSULIN ASPART 100 UNITS/ML 3 ML PEN SC SCH ×2 (08:17→11:51)
[2019-03-28] MEDS: CEFDINIR 300 MG CAP PO SCH (08:18)
[2019-03-28] MEDS: METOPROLOL TARTRATE 25 MG TAB PO SCH (08:18)
[2019-03-28] MEDS: ATORVASTATIN 40 MG TAB PO SCH (08:18)
[2019-03-28] MEDS: ASPIRIN 81 MG ECTAB PO SCH (08:18)
[2019-03-28] MEDS: CLOPIDOGREL BISULFATE 75 MG TAB PO SCH (08:18)
[2019-03-28] MEDS: HEPARIN SOD 5,000 UNIT/0.5 ML VIAL SQ SCH (08:19)
[2019-03-28 08:46] LABS: BUN Creatinine Ratio 28.4 (10-20); Calcium 8.7 mg/dl (8.5-10.1); Creatinine Clr Calc Pharmacy 50.8 ml/min; Est GFR (African American) 62.5; Est GFR (Non-African American) 53.9; Potassium 3.9 mmol/L (3.5-5.1)
[2019-03-28] MEDS ORDERED: INSULIN GLARGINE SOLOSTAR 100 UNITS/ML 3 ML PEN SC SCH ×2 (09:00)
--- NOTE | 2019-03-28 09:51 | Cardiology Progress Note ---
Date of Service March 28, 2019 Assessment & Plan (1) NSTEMI (non-ST elevated myocardial infarction): VT arrest due to acute ischemia, NSTEMI. Successful PCI / JOSÉ LUIS of culprit left circumflex stenosis. Preserved LVEF. No recurrence of ventricular arrhythmia since immediately post PCI and that was likely reperfusion arrhythmia. Continue ASA, plavix, metoprolol tartrate 25 mg BID, atorvastatin 40 mg. Will consider adding ACEI or ARB at follow up if BP still above goal. (2) First degree AV block: Stable, continue to follow. Amiodarone discontinued, as substrate for VT appears to have been acute ischemia, addressed with emergent PCI. (3) HTN (hypertension): Continue metoprolol. SBP labile ranging from 99 -150 mm Hg. At this point , due to his frailty, will continue metoprolol, consider ACEI / AR B as outpt. (4) Dyslipidemia: Atorvastatin 40 mg. Disposition: stable for discharge to home. Has outpt follow up with me: 04/09/2019 10:00 AM Danilo Diggs, DO Cardiology, [facility] Subjective CC: follow up diaphoresis, nausea, syncope Subjective: Pt feels well. Walked well with nursing and PT. Telemetry reveals stable SR with first degree AV block with AL interval in the range of 240-260 ms, improved compared to yesterday. No PVCs or sustained ventricular arrhythmias observed yesterday or overnight on telemetry. Review of Systems Review of Systems: All systems reviewed & are unremarkable except as noted in HPI & below Physical Exam Physical Exam: Temp Pulse Resp BP Pulse Ox 36.4 C L 73 19 145/69 H 95 03/28/19 07:32 03/28/19 07:32 03/28/19 07:32 03/28/19 07:32 03/28/19 07:32 Constitutional: WD/WN, vitals as above Respiratory: normal respiratory effort, lungs clear to auscultation Cardiovascular: RRR, no murmur, no edema Vessels: no JVD Gastrointestinal (Abdomen): normal bowel sounds, soft, nontender, no hepatosplenomegaly Skin: no rashes, warm and dry Neurologic: PERRL, EOMI, accommodation nl, no face palsy, no dysarthria Psychiatric: Orientation: alert and oriented x 3 Speech: normal rate/rhythm/volume of speech Insight: good insight Results & Data Vital Signs (Past 12 Hours) Vital Signs Temp Pulse Pulse Resp BP Pulse Ox 03/28/19 07:32 36.4 C L 73 19 145/69 H 95 03/28/19 03:05 36.9 C 64 16 97/56 L 96 03/28/19 00:06 37.0 C 66 16 153/82 H 95 Laboratory Results Comprehensive Metabolic Panel 03/28/19 Range/Units 07:59 Sodium 142 (136-145) mmol/L Potassium 3.9 (3.5-5.1) mmol/L Chloride 109 H (98-107) mmol/L Carbon Dioxide 27 (21-32) mmol/L BUN 34 H (7-18) mg/dl Creatinine 1.21 (0.6-1.4) mg/dl Glucose 164 H (70-99) mg/dl Calcium 8.7 (8.5-10.1) mg/dl Intake and Output 03/27/19 03/28/19 03/28/19 22:59 06:59 14:59 Intake Total 200 / 605 Output Total 400 / 900 200 / 900 250 / 250 Balance -200 / -295 -200 / -295 -250 / -250 Intake: Oral 200 / 605 Output: Urine 400 / 900 200 / 900 250 / 250 Other: Weight 92 kg
--- NOTE | 2019-03-28 10:57 | Pharmacy Report ---
Glycemic Control Progress Note - Date of Service March 28, 2019 - Scope Glycemic Pharmacist consulted for glycemic control to write orders per [facility] inpatient glycemic control protocol. - Objective Accuchecks BSG(last 24 hours):: 03/27/19 03/27/19 03/27/19 11:20 16:26 20:36 Glucose POC Glucose 116 H 115 H 128 H 03/28/19 03/28/19 07:19 07:59 Glucose 164 H POC Glucose 112 H HbA1c:: Hemoglobin A1c 6.9 % (4.5-5.6) H 03/25/19 13:55 - Recent Pertinent Medications The patient is currently receiving: * Basal insulin: Lantus 10 units every 24 hours * Correctional Insulin: Novolog Correction per scale ACHS Goal Range: Low 110 mg/dL - High 140 mg/dL Correction Factor: 30 mg/dL/unit * Prandial insulin: Per carb ratio of 1 unit per 15 grams CHO consumed - Outpatient Anti-Diabetic Meds GLIPIZIDE 5 MG PO BID - Assessment & Plan ASSESSMENT: * See progress note from 03/25/19 for more background info, in short: * Pt receiving SQ basal bolus insulin regimen for hyperglycemia secondary to baseline DM (outpatient regimen on hold). * Patient is currently receiving an average of 18 units of insulin per day * 10 units of basal insulin * 8 units of prandial/correctional insulin * BSGs ranging 115 - 128 mg/dl over the past 24hrs * Changes needed to insulin regimen: * AM Fasting BSG = 112 mg/dl. This is in goal range for patient based on inpatient targets and co-morbidities. Therefore Basal insulin will be reduced slightly to 7 units as fastings are trending down. Also represents > 50% of total insulin dose. * Post-prandial BSGs are in range therefore no changes needed to CF/CR. * Total daily dose = <20 units. PLAN FOR INPATIENT GLYCEMIC CONTROL: * Decreasing Lantus 7 units SQ daily * Continuing correction factor of 30 mg/dl/unit * Continuing carb ratio of 1 unit per 15 grams CHO consumed * Continuing goal range of Low 110 mg/dL - High 140 mg/dL RECOMMENDATIONS FOR DISCHARGE: * Patient's HbA1C is very well controlled for age and comorbidities (goal ~7- 7.5%). * Can continue current regimen HOWEVER caution in sulfonylureas in the elderly. Increased risk of hypoglycemia. If patient has these side effects at home karissa mmend stopping therapy. * with cardiovascular history, patient may tolerate an SGLT-2 Inhibitor or Victoza as both have been proven beneficial in patients with ASCVD. * Please note that the plan above was derived based on current level of insulin resistance and hospital stress. These recommendations are appropriate for inpatient admission only. Plan of care upon discharge will need to be reassessed to avoid potential outpatient hypo/hyperglycemia. Thank you.
[2019-03-28] MEDS ORDERED: lisinopriL 20 MG TAB PO SCH (11:15)
--- NOTE | 2019-03-28 11:20 | Hospitalist Progress Note ---
Date of Service March 28, 2019 Assessment & Plan (1) Ventricular tachycardia: -as per [facility] of cardiology service Dr. Diggs: "Patient presented with ventricular tachycardia arrest, spontaneous return of circulation occurred after defibrillation performed prehospital by EMS. 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 Would appear that the substrate of his presentation was myocardial ischemia, and he has since been revascularized without significant obstructive residual CAD elsewhere. Although his echocardiogram was somewhat technically limited, his ejection fraction was normal. He had a brief recurrence of wide-complex rhythm shortly after his cardiac catheterization, this was likely due to reperfusion arrhythmia, without any significant ventricular arrhythmia in the meantime." -patient's echocardiogram is technically limited. As noted, this was also observed at the time of his 2017 echocardiogram. The left ventricular ejection fraction however appears to be grossly normal. The right ventricle appears hypokinetic. -patient was on IV amiodarone when in the ICU and transitioned to oral amiodarone on 03/25/19 with the metoprolol tartrate -transferred out of remains intensive care unit to telemetry unit on 03/26/19 as per cardiology service -amiodarone discontinued by cardiology service on 03/27/19 (2) First degree AV block: -noted when patient was in the ICU -TN interval on EKG on 03/27/19 is 360 ms; EKG on 03/28/19 with TN interval better as less than 300 ms (3) NSTEMI (non-ST elevated myocardial infarction): -medical management of NSTEMI -troponins had peaked to 8.95 by AM of 03/25/19, no current active chest pain, and troponins downtrending -aspirin, clopidogrel, metoprolol tartrate 25 mg twice daily, and atorvastatin 40 mg daily -cardiology service does not think a LifeVest wearable defibrillator or AICD is indicated given normal LVEF, and culprit ischemia substrate has been corrected with PCI -Patient has discharge medications electronically sent to [facility] [address] [place] [address] Patient should take the medications of aspirin 81 mg daily, clopidogrel (Plavix) 75 mg daily, atorvastatin 40 mg daily, metoprolol 25 mg twice a day for cardiac protection Patient should take lisinopril 20 mg daily instead of home lisinopril/hydrocholorthiazide combination for blood pressure control Patient should avoid naproxen to prevent bleed risk with aspirin and clopidogrel Cardiology appointment: 04/09/2019 10:00 AM Provider Danilo Diggs DO Department Cardiology, [facility] (4) Hypotension: -initial hypotension likely from initial lack of cardiac perfusion to body during initial acute cardiac event -hypotension had resolved -Patient should take lisinopril 20 mg daily instead of home lisinop ril/hydrocholorthiazide combination for blood pressure control (5) DKA (diabetic ketoacidoses): -admission labs suggest DKA with low HCO3, elevated gap, glucose 322 -Pharmacy Glycemic Management consult by rail operator and begun on DKA insulin infusion protocol upon arrival to ICU from Video Game Script Writer -DKA resolved (6) DMII (diabetes mellitus, type 2): -currently on subcutaneous insulin -holding home dose glipizde (7) SOUTH (acute kidney injury): admission creatinine of 1.8 and trended down with IV fluids -creatinine is currently 1.21 -acute kidney injury has been treated and resolved -Patient should avoid methocarbamol until follow up with primary care doctor 04/02/2019 11:00 AM Provider Dalton Keller MD Department Family Practice [facility] Hypophosphatemia -serum phosphate is 2.3 on 03/26/19 and ICU team ordered phosphorous supplements -serum phosphate is 3.3 on 03/27/19 -Hypophosphatemia has been treated and resolved Urinary Tract Infection suspected -admission urine analysis with 1+ bacteria, urine culture More than three types of organisms present, all low counts mixed probable skin jonnathan -ICU team started patient on antibiotics and recommends ceftriaxone transition to oral Omnicef 300 mg 3 times daily started on 03/26/19 for 5 days -Patient should take antibiotic cefdinir 300 mg twice a day to complete antibiotic treatment of suspected urinary tract infection with last dose to be completed on 03/31/19 (8) DVT prophylaxis: -Heparin 5000 units every 12h while inpatient [phone]; [phone] Discharge Diagnosis: Ventricular tachycardia; NSTEMI (non-ST elevated myocardial infarction); First Degree AV Block; DKA (diabetic ketoacidoses) with Type 2 diabetes mellitus without retirement use of insulin (DKA has resolved) SOUTH (acute kidney injury) has been treated and resolved, Hypophosphatemia has been treated and resolved; urinary tract infection suspected Subjective Patient does not have any symptoms. no chest pain. no shortness of breath. no headache. no dizziness. no lightheadedness. no vomiting.EKG shows improvement in TN interval of 1st degree heart blcok. cleared by cardiology to be discharged. Discharge plans discussed at length Physical Exam Constitutional: comfortable Eyes: PERRL, conjunctivae normal, anicteric sclerae EOM intact bilaterally ENMT: external ear and nose normal, oropharynx normal Neck: normal visual inspection Respiratory: normal respiratory effort Cardiovascular: Rate/Rhythm: regular rhythm and + bradycardic Gastrointestinal (Abdomen): normal bowel sounds, soft, nontender, no hepatosplenomegaly Musculoskeletal: Head/Neck/Chest: normocephalic and head atraumatic Neurologic: PERRL, EOMI, accommodation nl, no face palsy, no dysarthria Psychiatric: A+Ox3, euthymic affect Results & Data Vital Signs (Past 12 Hours) Vital Signs Temp Pulse Pulse Resp BP Pulse Ox 03/28/19 10:48 36.6 C 60 19 120/65 97 03/28/19 07:32 36.4 C L 73 19 145/69 H 95 03/28/19 03:05 36.9 C 64 16 97/56 L 96 03/28/19 00:06 37.0 C 66 16 153/82 H 95
--- NOTE | 2019-03-28 11:28 | Discharge Summary ---
Date of Service March 28, 2019 Admission HPI Per Admitting Provider 88 year old male who presents to the ED via EMS. Starting this morning, patient was having episodes of diaphoresis, nausea, chest pressure, and shortness of breath. He collapsed in the bathroom earlier this afternoon. Patient denies loosing consciousness. reports patient was not making much sense. EMS was called. En route to the ED, patient went into V-tach and was shocked. Patient reports he otherwise has been feeling well recently. No other recent illnesses, fever, and chills. Denies other episodes of chest pain and shortness of breath. No abdominal pain, vomiting, or diarrhea. Denies urinary symptoms. Upon arrival to the ED, patient is awake and alert. He was placed on an amio drip. He was somewhat hypotensive and was also placed on a norepi drip. EKG shows ST depression in leads V2/V3. Labs show SOUTH and mild DKA. Dr. Castro evaluated the patient in the ED and patient will be going directly to the operations label clerk for further management. Principal Diagnosis Ventricular tachycardia; NSTEMI (non-ST elevated myocardial infarction); First Degree AV Block; DKA (diabetic ketoacidoses) with Type 2 diabetes mellitus without snf use of insulin (DKA has resolved) SOUTH (acute kidney injury) has been treated and resolved, Hypophosphatemia has been treated and resolved; urinary tract infection suspected Discharge Exam Constitutional comfortable Eyes PERRL, conjunctivae normal, anicteric sclerae EOM intact bilaterally ENMT external ear and nose normal, oropharynx normal Neck normal visual inspection Respiratory normal respiratory effort Cardiovascular Rate/Rhythm: regular rhythm and + bradycardic Gastrointestinal (Abdomen) normal bowel sounds, soft, nontender, no hepatosplenomegaly Musculoskeletal Head/Neck/Chest: normocephalic and head atraumatic Neurologic PERRL, EOMI, accommodation nl, no face palsy, no dysarthria Psychiatric A+Ox3, euthymic affect Discharge Data Allergies Allergy/AdvReac Type Severity Reaction Status Date / Time No Known Allergies Allergy Verified 03/09/19 14:12 Consultations 03/24/19 16:55 ED Decision to Admit Stat 03/24/19 18:58 Consult Cardiology Routine 03/24/19 19:04 Consult Cardiac Rehabilitation Routine 03/24/19 19:22 Consult Case Management - Discharge Planning Routine Consult Banker Mason Routine Procedures Performed Operation Date: 03/24/19 17:00 Actual Procedures s Cineradiography w/Routine Exam - Hang Castro MD p Aspiration/PCI w/JOSÉ LUIS for Stemi - Hang Castro MD Operation Date: 03/24/19 17:00 Actual Procedures p Drug Eluting Stent SGl Vessel - Hang Castro MD Ordered Studies 03/24/19 17:23 CL Cath Imgs for PACS use only Stat Hospital Course (1) Ventricular tachycardia: -as per [facility] of cardiology service Dr. Diggs: "Patient presented with ventricular tachycardia arrest, spontaneous return of circulation occurred after defibrillation performed prehospital by EMS. 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 Would appear that the substrate of his presentation was myocardial ischemia, and he has since been revascularized without significant obstructive residual CAD elsewhere. Although his echocardiogram was somewhat technically limited, his ejection fraction was normal. He had a brief recurrence of wide-complex rhythm shortly after his cardiac catheterization, this was likely due to reperfusion arrhythmia, without any significant ventricular arrhythmia in the meantime." -patient's echocardiogram is technically limited. As noted, this was also observed at the time of his 2017 echocardiogram. The left ventricular ejection fraction however appears to be grossly normal. The right ventricle appears hypokinetic. -patient was on IV amiodarone when in the ICU and transitioned to oral amiodarone on 03/25/19 with the metoprolol tartrate -transferred out of remains intensive care unit to telemetry unit on 03/26/19 as per cardiology service -amiodarone discontinued by cardiology service on 03/27/19 (2) First degree AV block: -noted when patient was in the ICU -WY interval on EKG on 03/27/19 is 360 ms; EKG on 03/28/19 with WY interval better as less than 300 ms (3) NSTEMI (non-ST elevated myocardial infarction): -medical management of NSTEMI -troponins had peaked to 8.95 by AM of 03/25/19, no current active chest pain, and troponins downtrending -aspirin, clopidogrel, metoprolol tartrate 25 mg twice daily, and atorvastatin 40 mg daily -cardiology service does not think a LifeVest wearable defibrillator or AICD is indicated given normal LVEF, and culprit ischemia substrate has been corrected with PCI -Patient has discharge medications electronically sent to [facility] [address] [facility] [place] [address] Patient should take the medications of aspirin 81 mg daily, clopidogrel (Plavix) 75 mg daily, atorvastatin 40 mg daily, metoprolol 25 mg twice a day for cardiac protection Patient should take lisinopril 20 mg daily instead of home lisinopril/hydrocholorthiazide combination for blood pressure control Patient should avoid naproxen to prevent bleed risk with aspirin and clopidogrel Cardiology appointment: 04/09/2019 10:00 AM Provider Danilo Diggs DO Department Cardiology, [facility] (4) Hypotension: -initial hypotension likely from initial lack of cardiac perfusion to body during initial acute cardiac event -hypotension had resolved -Patient should take lisinopril 20 mg daily instead of home lisinopril/hydrocholorthiazide combination for blood pressure control (5) DKA (diabetic ketoacidoses): -admission labs suggest DKA with low HCO3, elevated gap, glucose 322 -Pharmacy Glycemic Management consult by chief contract officer and begun on DKA insulin infusion protocol upon arrival to ICU from [facility] -DKA resolved (6) DMII (diabetes mellitus, type 2): -currently on subcutaneous insulin -holding home dose glipizde (7) SOUTH (acute kidney injury): admission creatinine of 1.8 and trended down with IV fluids -creatinine is currently 1.21 -acute kidney injury has been treated and resolved -Patient should avoid methocarbamol until follow up with primary care doctor 04/02/2019 11:00 AM Provider Dalton Keller MD Department Family Practice [facility] Hypophosphatemia -serum phosphate is 2.3 on 03/26/19 and ICU team ordered phosphorous supplements -serum phosphate is 3.3 on 03/27/19 -Hypophosphatemia has been treated and resolved Urinary Tract Infection suspected -admission urine analysis with 1+ bacteria, urine culture More than three types of organisms present, all low counts mixed probable skin jonnathan -ICU team started patient on antibiotics and recommends ceftriaxone transition to oral Omnicef 300 mg 3 times daily started on 03/26/19 for 5 days -Patient should take antibiotic cefdinir 300 mg twice a day to complete antibiotic treatment of suspected urinary tract infection with last dose to be completed on 03/31/19 (8) DVT prophylaxis: -Heparin 5000 units every 12h while inpatient [phone]; [phone] Discharge Diagnosis: Ventricular tachycardia; NSTEMI (non-ST elevated myocardial infarction); First Degree AV Block; DKA (diabetic ketoacidoses) with Type 2 diabetes mellitus without rat exterminator use of insulin (DKA has resolved) SOUTH (acute kidney injury) has been treated and resolved, Hypophosphatemia has been treated and resolved; urinary tract infection suspected Total Time Total Time Spent Total Time Spent (In Minutes): 40 minutes Total Time Includes: Examination of the Patient, Discharge Planning, Medication Reconciliation and Communication With Other Providers Discharge Plan Discharge Items Patient Disposition: Home - Self-Care Reason For Visit: CARDIAC ARREST,V-TACH Discharge Diagnosis: Ventricular tachycardia; NSTEMI (non-ST elevated myocardial infarction); First Degree AV Block; DKA (diabetic ketoacidoses) with Type 2 diabetes mellitus without rat exterminator use of insulin (DKA has resolved) SOUTH (acute kidney injury) has been treated and resolved, Hypophosphatemia has been treated and resolved; urinary tract infection suspected Condition on Discharge: Good Activity: Per Instructions section Non-emergency contact: Primary Care Provider and Assayer Helper Call non-emergency contact if: you have any medication questions Follow-up/Referrals: Dalton Keller MD [Primary Care Provider] - Diet: Carb Consistent or DM2 and Heart Healthy Addtl Attending Provider Instructions: Patient has discharge medications electronically sent to [facility] [address] [place] [address] Patient should take the medications of aspirin 81 mg daily, clopidogrel (Plavix) 75 mg daily, atorvastatin 40 mg daily, metoprolol 25 mg twice a day for cardiac protection Patient should take lisinopril 20 mg daily instead of home lisinopril/hydrocholorthiazide combination for blood pressure control Patient should avoid naproxen to prevent bleed risk with aspirin and clopidogrel Patient should take antibiotic cefdinir 300 mg twice a day to complete antibiotic treatment of suspected urinary tract infection with last dose to be completed on 03/31/19 Patient should avoid methocarbamol until follow up with primary care doctor Follow up appointments 04/02/2019 11:00 AM Provider Dalton Keller MD Department Family Practice [facility] 04/09/2019 10:00 AM Provider Danilo Diggs DO Department Cardiology, [facility] Pending Studies at Discharge: No Stand-Alone Forms: My [facility] Medications and DC Order Prescriptions: New atorvastatin 40 mg Tablet 40 mg PO QAM 30 Days Qty: 30 RF: 0 lisinopril 20 mg Tablet 20 mg PO QAM 30 Days Qty: 30 RF: 0 clopidogrel 75 mg Tablet 75 mg PO QAM 30 Days Qty: 30 RF: 0 metoprolol tartrate 25 mg Tablet 25 mg PO BID 30 Days Qty: 60 RF: 0 aspirin [Ecotrin Low Strength] 81 mg Tablet,Delayed Release (Dr/Ec) 81 mg PO QAM 30 Days Qty: 30 RF: 0 cefdinir 300 mg Capsule 300 mg PO BID 4 Days Qty: 7 RF: 0 Continued albuterol sulfate 90 mcg/actuation Aerosol Powdr Breath Activated 2 inh INHALATION QID PRN (Reason: SHORT OF BREATH) RF: 0 multivitamin Tablet 1 tab PO QAM RF: 0 glipizide 5 mg Tablet 5 mg PO BID RF: 0 cholecalciferol (vitamin D3) [Vitamin D3] 2,000 unit Tablet 2,000 unit PO QPM RF: 0 Discontinued methocarbamol 500 mg Tablet 500 mg PO HS PRN (Reason: Muscle Spasm) RF: 0 ondansetron HCl 4 mg Tablet 4 mg PO Q6 PRN (Reason: Nausea) RF: 0 lisinopril-hydrochlorothiazide 20-12.5 mg Tablet 1 tab PO QAM RF: 0 aspirin [Aspir-Low] 81 mg Tablet,Delayed Release (Dr/Ec) 81 mg PO DAILY RF: 0 naproxen 500 mg Tablet 500 mg PO BID PRN (Reason: Pain) RF: 0 Discharge Orders: Discharge Order (Routine); Ordered 03/28/19 Ordered By: Rufus Jose Admission Data Admit Date/Time: 03/24/19 17:34 Attending Provider: Rufus Jose Admit Provider: Barber Russell Primary Care Provider: Dalton Keller Other Providers: Barber Russell ; Adalberto Woodard Vyacheslav
== END 2019-03-28 13:50 | disposition home or self-care (01) | DRG 228 ==
LOC: ED 15:33 → CC 17:26 → 1E 17:26 → SUATTDRO 17:34 → 1E 17:34 → 2S 03-26 13:07